=== PATIENT | male | born 1995 ===

== ENCOUNTER 2023-09-27 14:10 | Outpatient (AMB) | payer OTHER, SELFPAY ==
--- NOTE | 2023-09-27 14:28 | MHC.PC.OV ---
Vital Signs 09/27/23 14:32 Height 5 ft 7 in Weight 234 lb BMI 36.6 BP 108/64 Blood Pressure Location Rt brachial Position Sitting Pulse 106 H Pulse Source Pulse Oximeter Pulse Oximetry (%) 95 Oxygen Delivery Method Room Air Intake Visit Reasons: Numbness Tingling of left leg Intake Note: Patient here to talk about numbness and tingling in left arm, having a hard time walking, sitting bending etc. Allergies No Known Allergies Allergy (Verified 09/27/23 14:32) Medication List - Last Reconciled 09/27/23 by DANI Vick oxycodone 10 mg PO BID PRN Tobacco use date assessed: 09/27/23 Dental Screening Dental Screen Date: 09/27/23 Did you have a dental visit in the last 12 months?: Yes Did you have a dental problem in the last 6 months where you did not have access to dental care?: No Was dental information given to patient?: Patient has dentist HPI Numbness Tingling of left leg HPI Details Pt c/o lower back pain. He reports pain with bending and sitting. Pt also reports radicular symptoms down his LLE. He reports numbness/tingling and occasionally feels like he is dragging his leg. Pt has seen neurosurgery in the past, hx of microdiscectomy in 2017 and 2021 (revision). MRI from 09/25 showed postsurgical and degenerative changes of the lumbar spine, disc extrusion at L5-S1 as well as postsurgical reaction/scarring likely affecting the left S1 and S2 nerve roots, similar to previous exam (see detailed report). Will refer to our spine clinic. Will also send dexamethasone. Denies any signs of cauda equina. [facility] Surgical History (Updated 09/27/23 @ 14:44 by DANI Vick) Hx of appendectomy Hx of microdiscectomy Social History Housing: House Patient Tobacco Use Status: Former Tobacco user e-Cigarette/Vaping Use: Currently Using service: No Current occupational status: unemployed Cognitive needs: No Hearing needs: No Vision needs: No Questionnaire PHQ-9 Over the last 2 weeks, how often have you been bothered by any of the following problems? 1. Little interest or pleasure in doing things: more than half the days 2. Feeling down, depressed, or hopeless: several days 3. Trouble falling or staying asleep, or sleeping too much: more than half the days 4. Feeling tired or having little energy: nearly every day 5. Poor appetite or overeating: several days 6. Feeling bad about yourself - or that you are a failure or have let yourself or your family down: several days 7. Trouble concentrating on things, such as reading the newspaper or watching television: several days 8. Moving or speaking so slowly that other people could have noticed. Or the opposite - being so fidgety or restless that you have been moving around a lot more than usual: several days 9. Thoughts that you would be better off or of hurting yourself in some way: not at all Total score: 12 Depression Screening Interpretation: Positive Depression Screening Done: Yes 57371 - PHQ-9 Billing: Yes Source: Developed by Drs. Marcos Lynn, Vera Rao, Bill Sandoval and colleagues, with an educational svetlana from [employer]. Thrive Questionnaire Date Thrive assessed: 09/27/23 I am a: Patient What is your living situation today?: I have a steady place to live Within the past 12 months, did the food you bought not last and you didn't have the money to get more?: Never true Within the past 12 months, did you worry whether your food would run out before you got money to buy more?: Never true Do you have trouble paying for medicines?: No Do you have trouble getting transportation to medical appointments?: No Do you have trouble paying your heating and electricity bill?: No Do you have trouble taking care of your child, family member or friend?: No Do you have trouble with day-to-day activities such as bathing, preparing meals, shopping, managing finances, etc.?: Yes Are you currently unemployed and looking for a job?: Yes Are you interested in more education?: Yes BRET-7 AMB Questionnaire BRET-7 Date BRET - 7 assessed: 09/27/23 Feeling nervous, anxious, or on edge: 2 = More than half the days Not being able to stop or control worryin = More than half the days Worrying too much about different things: 2 = More than half the days Trouble relaxin = More than half the days Being so restless that it is hard to sit still: 2 = More than half the days Becoming easily annoyed or irritable: 1 = Several days Feeling afraid as if something awful might happen: 0 = Not at all Total BRET-7 score (0-4 normal; 5-9 mild; 10-14 moderate; 15-21 severe): 11 Source: Developed by Drs. Marcos Lynn, Vera Rao, Bill Sandoval and colleagues, with an educational svetlana from [employer]. BRET-7 Assessment Billing BRET-7 Assessment Tool: BRET-7 Assessment 51233 Review of Systems Const Reports as per HPI Physical exam (Primary Care) Vital Signs: Last Vital Signs Pulse 106 H 09/27/23 14:32 BP 108/64 09/27/23 14:32 Pulse Ox 95 09/27/23 14:32 Oxygen Delivery Method Room Air 09/27/23 14:32 BMI result Body Mass Index 36.6 Tobacco/Smoking Status: Tobacco use Status Tobacco use date assessed 09/27/23 09/27/23 14:36 Patient Tobacco Use Status Former Tobacco user 09/27/23 14:36 e-Cigarette/Vaping Use Currently Using 09/27/23 14:36 PHQ-9: PHQ-9 Score PHQ-9: Total score 12 09/27/23 15:03 Depression Screening Interpretation: Positive Thrive Assessment: Date of Thrive Assessment Date Thrive assessed 09/27/23 09/27/23 14:49 Const General: cooperative Nutritional Appearance: obese Orientation/consciousness: patient oriented x3 Resp Effort & Inspection: normal respiratory effort Auscultation: clear to auscultation bilaterally Cardio Rate: regular rate Rhythm: regular rhythm Heart sounds: S1 normal heart sound present and S2 normal heart sound present Back/Spine/Pelvis Other: unable to walk on heels or toes, severe weakness to LLE with significant numbness from ankle to plantar lateral foot, no sensation with use of monofilament, unable to get into supine position due to extreme pain Neuro General: patient oriented x3 Psych Appearance: grossly normal Mental Status: mental status grossly normal Speech and movement: Normal speech and movement present Affect: normal affect Attitude: cooperative Thought process: Normal thought process present Thought content: Normal thought content present Insight: Good insight present (Psych) Judgement: Good judgement present (Psych) Assessment and Plan Assessment & Plan (1) Nerve root compression: Code(s): G54.9 - Nerve root and plexus disorder, unspecified Plan: referred to spine center, dexamethasone taper sent Plan The patient agreed to the use of a curator medical museum for this encounter. Scribed for DANI Newman by Aneta Keating curator medical museum, on 09/27/2023 at 14:40 EST. Orders: Referrals Neuro Spine Referral G54.9 - Nerve root and plexus disorder, unspecified Medications: New dexamethasone 3 times a day for 3 days, twice a day for 3 days, daily for 3 days. 18 tabs 0RF 9 days Coding Level of Care Code New Pt Level 3 (89056) Diagnoses Nerve root compression G54.9 Additional Codes BRET-7 Assessment Billing - BRET-7 Assessment Tool: BRET-7 Assessment 48184 ([id number])
[2023-09-27 14:32] VITALS: BP 108/64; PULSE 106; O2SAT 95; BMI 36.6
== END 2023-09-27 15:25 | disposition home or self-care (01) ==
PROVIDERS: Visit Provider Nurse Practitioner Family
DX: G54.9 Nerve root and plexus disorder, unspecified (principal)
CPT/HCPCS: 99203

== ENCOUNTER 2023-10-19 13:08 | Outpatient (AMB) | payer OTHER, SELFPAY ==
--- NOTE | 2023-10-19 13:30 | A.SPINEOV_ITS ---
Intake Intake Visit Reasons: Nerve root and plexus disorder Intake Note: Mr. Paniagua is here today c/o low back pain. [place] [facility] [place]. 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 He is a very nice 28-year-old gentleman with a history of 2 previous L5-S1 microdiskectomies done at [facility] by , who presents to the office today for evaluation of Acute left leg pain which developed on 2022. He tells me that his 1st surgery was sometime in 2018 and he did great from that. About 2-3 years later he underwent a 2nd procedure in 2021 and he did have success from that surgery but had a lingering sense that something was wrong. Specifically he had persistent numbness in the back of his leg and he still had some of the pain down his left leg. He went through some rehab, PT, medication trials etc. and sometime around 2022 fell an abrupt onset of severe pain going down to his left leg into his foot. He also lost sensation from his calf down into the lateral aspect of his left foot and the bottom of his foot. He also developed significant ankle weakness. He went to the emergency room at [facility], underwent an MRI showing a recurrent large herniated disc on the left at L5-S1. He comes in today to see us for 2nd opinion about what to do regarding his back. He has not seen Dr. Zaldivar regarding his current situation. He has trialed steroids without success. He is tried [id number] medications like Motrin and Tylenol etc. without any success. PMH: He is reasonably healthy, no issues with his heart, lungs, kidneys. No history of bleeding disorders. Social hx: He vapes, but denies any alcohol or marijuana use Medications: Currently only taking [id number] pain medications if needed but he is trying to avoid them. Allergies: None Physical exam: Awake alert oriented, he is uncomfortable with any manipulation of his leg, straight leg raise positive at about 10-15 degrees. He has significant weakness of the left plantar flexor I would rate this as 2/5, dorsiflexion is also slightly weak at 4-5. Absent Achilles reflex on the left. Decreased sensation in the S1 dermatome. He walks with a limp and is unstable on his left leg. Imaging review: Lumbar MRI done at [facility] on 09/25/2023 showing degenerative disc at L4-5 as well as postsurgical changes at L5-S1 with a large recurrent herniated disc on the left causing significant nerve compression. The disc is herniated almost out past the facet joint. Impression: 28-year-old male history of 2 previous lumbar microdiskectomies at L5-S1, now presents with a 3rd herniation with a substantially large left-sided a rupture with weakness and numbness of his leg with severe pain that is incapacitating. I reviewed his case with Dr. Simeon, and we spent a significant amount of time reviewing the patient's films with him and going over the options. Our 1st thought was to do a microdiskectomy just to get rid of the pressure on the nerve, but the patient was concerned that this would just lead him back to the same situation he is currently at. We also discussed the option of a left L5-S1 TLIF. We had an extensive conversation about the fact that he does have a degenerative disc above where he has the herniated disc, but because of his age we are reluctant to proceed aggressively with a 2 level fusion so we will strictly keep to the level that is herniated. He understands that there is risk of adjacent segment disease down the road and he understands the reasoning behind why we are not going to fuse the L4-5 disc. The idea of an artificial disc was discussed with the patient as he was curious about whether not he is a candidate for that, but unfortunately because of the significant amount of removal of the posterior elements at L5-S1, we suspect this area to be unstable and therefore would not be a candidate for an artificial disc. However, down the road if L4-5 should become an issue, it would be an option to do an artificial disc at that level at that time. We also spent a significant amount of time discussing the fact that he has very likely underlying nerve damage related to the 3 herniated discs and that there is no way to predict if he will recover any of the strength or sensation in his leg. The goal of the surgery would be to improve his pain and his quality of life. We are going to book the surgery urgently because of the rapid decline in the strength and sensation in his leg. Pt was given risk and benefits of surgery including but not limited to infection, hematoma , nerve injury,durotomy, weakness,bowel/bladder injury, persistent pain, persistent weakness and numbness as well as the option to continue with conservative treatment and patient wishes to proceed with surgery. Pt is aware they should stop their motrin, aspirin 7 days prior to surgery. All questions were answered to the best of our ability. If there is anything about this patients medical history that we have overlooked or concerns you have about us proceeding with surgery we would appreciate any input you can offer. Thank you for allowing us to care for your patient. The total time spent with this visit with this patient was 45 minutes reviewing history, physical exam, lumbar imaging review, and implementation of treatment plan or further diagnostic testing Joe Simeon MD,PhD [facility] Coding Level of Care Code New Pt Level 4 (75085) Diagnoses Lumbar disc herniation M51.26
== END 2023-10-19 14:47 | disposition home or self-care (01) ==
PROVIDERS: PCP Nurse Practitioner Family; Referring Provider Nurse Practitioner Family; Visit Provider Physician Assistant
DX: M51.26 Other intervertebral disc displacement, lumbar region (principal)
CPT/HCPCS: 99204

== ENCOUNTER → 2023-10-19 13:08 | Outpatient (BNVA) | payer OTHER, SELFPAY | PROVIDERS: PCP Nurse Practitioner Family; Referring Provider Nurse Practitioner Family; Visit Provider Physician Assistant | DX: M51.26 Other intervertebral disc displacement, lumbar region (principal) | CPT/HCPCS: 99202 ==

== ENCOUNTER 2023-10-24 06:28 | Inpatient (IN) | payer OTHER, SELFPAY ==
[2023-10-24] VITALS (13 sets, daily range): BP systolic 103–147; BP diastolic 60–101; PULSE 86–117; RESP 11–20; TEMP 36.1–36.9; O2SAT 96–98; BMI 37.7
--- NOTE | ~2023-10-24 | FL_ITS ---
EXAMINATION: XR FLUOROSCOPY WITH IMAGES CLINICAL INFORMATION: Transforaminal lumbar interbody fusion COMPARISON: None available. TECHNIQUE: Fluoroscopy Supervised By: Jose Manzano. Fluoroscopy Time: 1.6 minutes. Cumulative Dose: 131.9 mGy. DAP: 21.03 Gycm2. Images: 2. FINDINGS: 2 views of lower lumbar spine are obtained by C-arm camera and revealed well positioned times foraminal posterior fusion with paired of screws and there is basilar between L5-S1. FL/FL guidance in OR IMPRESSION: Successful hardware placement
[2023-10-24] MEDS: methocarbamoL 750 MG TABLET PO (06:57)
[2023-10-24] MEDS: Gabapentin 300 MG CAPSULE PO (06:57)
--- NOTE | 2023-10-24 07:00 | MHC.SHP ---
Pre-Procedural Eval Section A Date of Service: 10/24/23 The patient is an INPATIENT: No Changes since office visit: No Cold of Flu in the past 2 weeks, No New Medical Problems, No Changes in Medication and No Patient answered all questions The History & Physical has been completed within 30 days and I have reviewed it.: No Section B Chief Complaint: S/p L5-S1 TLIF Allergies: Allergies Allergy/AdvReac Type Severity Reaction Status Date / Time No Known Allergies Allergy Verified 10/24/23 06:37 Review of Systems Sugical H&P ROS: Negative: Constitution, Cardiovascular, Respiratory, Neurological, Psychiatric, Hem-Onc, Allergic/Immunologic, Gastrointestinal, Genitourinary, Musculoskeletal, Integumentary, Endocrine and Eyes/Ears/Nose/Throat Exam Surgical H&P Exam: Not Evaluated: HEENT, Not Evaluated: Heart, Not Evaluated: Lungs, Not Evaluated: Extremities, Not Evaluated: Abdomen, Not Evaluated: Skin and Not Evaluated: Neurological Plan Diagnosis/Plan: Unchanged Left L5-S1 Transforaminal lumbar interbody fusion Time Spent With Patient Time: Total time managing care of this patient today __6__ minutes.
[2023-10-24] MEDS: Lactated Ringers 1,000 ML 80 ML IVCONT (07:12)
--- NOTE | 2023-10-24 07:16 | P.CONAN_ITS ---
HPI - Anesthesia Eval Consult details Narrative: 28 yo M presenting for TLIF L5-S1. [place]. PMFSH Active Problems Active Problems: All Active Problems (Updated 10/19/23 @ 14:27 by MISAEL Tao) Lumbar disc herniation (Acute) Nerve root compression (Acute) Family History Family history of problems with anesthesia: No Surgical History Surgical History (Updated 09/27/23 @ 14:44 by Aj Spence, CLIPPER MACHINE-) Hx of appendectomy Hx of microdiscectomy History of Problems with Anesthesia: No Social History Social History Housing: House Patient Tobacco Use Status: Current everyday Tobacco user Tobacco use type: Cigarette e-Cigarette/Vaping Use: Currently Using Use of substances other than those prescribed or required for medical reasons: No Are you DNR?: No Advance Directives: No Advance Directives Information Provided: No service: No Current occupational status: unemployed Cognitive needs: No Hearing needs: No Vision needs: No Meds Allergies Allergy/AdvReac Type Severity Reaction Status Date / Time No Known Allergies Allergy Verified 10/24/23 06:37 Active Medications: Current Medications Lactated Ringer's (Lr) 1,000 mls @ 80 mls/hr IVCONT .[id number] LISANDRO Last Admin: 10/24/23 07:12 Dose: 80 mls/hr Home Medications Medication Instructions Recorded Confirmed Last Taken Type oxycodone 10 mg tablet 10 mg PO BID PRN 09/27/23 09/27/23 Unknown History Exam Exam Date and Time: October 24, 2023 0715 Height,Weight and Vital Signs: Height 5 ft 7 in Weight 109.089 kg Last Vital Signs Temp 97.0 F 10/24/23 07:09 Pulse 96 10/24/23 07:09 Resp 16 10/24/23 07:09 BP 124/78 10/24/23 07:09 Pulse Ox 98 10/24/23 07:09 O2 Del Method Room Air 10/24/23 07:09 Airway Mallampati Class: I TM Dist: >3cm Neck ROM: Full Loose/Missing/Broken Teeth: No Heart: S1S2 Lungs: CTAB Assessment and Plan Assessment Anesthesia Assessment: Anesthesia Plan Discussed and Chart Reviewed Final Anesthetic Review Family History of Problems with Anesthesia: No History of Problems with Anesthesia: No NPO: Yes ASA Class: II Final Preanesthetic Review: No Changes in Pt Med Stat, Meds/Allgs Chart Reviewed, Consent Obtained/Reviewed and Anes Risks/Benef Reviewed Patient Risk: Low Procedure Risk: Intermediate Anesthetic Plan Anesthetic Plan: GA and Agree w/ Assess. and Plan Disposition: Standard PACU
--- NOTE | 2023-10-24 11:34 | P.OP_ITS ---
Operative Note Operative Note Date of Service: 10/24/23 Narrative: Preop diagnosis: Left lumbar radiculopathy with foot weakness due to a large recurrent disc herniation L5-S1; status post 2 previous lumbar microdiskectomies in another institution Postop diagnosis: Left lumbar radiculopathy due to calcified disc herniation Procedure: Left L5-S1 Complete facetectomy; Diskectomy, arthrodesis and implantation cage; L5-S1 posterior instrumentation; combination of allograft and allograft Consent Informed Consent was obtained for this operation. I have explained the nature, purpose and benefits of the operation. I have discussed the risks and benefit of the operation including possible complications or adverse events with patient/family. Alternative(s) were discussed with the patient with their relative benefits and risks as well as the consequences of not accepting the operation were included in obtaining consent. Surgeon: Shukri Simeon MD, PhD Assist: Joe pedro Description of Procedure: This 28-year-old male previously underwent 2 microdiskectomies L5-S1 another institution. He presented to our clinic with left leg pain and foot weakness. A recurrent MRI shows a large disc extrusion compressing the S1 nerve root. The patient was offered a remove the disc herniation followed by a fusion of the L5- S1 segment with a transforaminal lumbar interbody fusion. Procedure complication explained. The patient was consented. The patient was brought to the operating room endotracheally intubated. The patient was turned in a prone position the Ministerio spine table prepping and draping was done followed by time- out. Two C arms were installed for fluoroscopy. Two paramedian incisions were made in preparation for pedicle screw placement. Following steps were taken for pedicle screw placement: First the pediguard tap was used to create a trans pedicular trajectory into the vertebral body. Then a K-wire was advanced into the vertebral body. On the contralateral side, a specially designed instrument was advanced over the K-wire, followed by placement of a pedicle screw in the corresponding pedicle and removal of the K-wire. On the ipsilateral side, the K-wires were bent out of the way after which the transforaminal interbody fusion process was started. The paravertebral muscles were released to expose the L5- S1 lamina and facet joint. Fibrous tissue was resected to expose the previous operated anatomy. The facet joint was mostly resected in the previous surgery. I removed the remainder of the facet joint flush to the L5 pedicle and S1 pedicle. The disc space was identified and a large mass was palpated displacing S1 nerve posteriorly. This was the disc but the consistency of disc was unfortunately calcified, which made the resection very difficult. I cleaned out the L5-S1 disc as much as possible laterally and tried with a curved pituitary to retrieve as much bone as possible from under the S1 nerve root. I tried to maneuver the S1 nerve root over the underlying calcified disc and although I was able to remove most of it a medial part persisted which was not coming loose on the S1 nerve. Then I focused on placing in the interbody device. The nerve root was retracted medially the remainder of the diskectomy was completed. An 10 mm trial implant was inserted. More disc material was removed. The endplates were prepared. The anterior 1/3 of disc space was filled with a mixture of autograft and allograft followed by placement of a 11 mm by 32 mm and 6 degree lordosis CTL titanium cage filled with autograft and allograft ending lateral from the midline on AP fluoroscopic image. I was unable to position it in true midline as I hit bone in the center of the disc space. I believe that the L5-S1 disc space was already partially fused. Hemostasis was done. The retractor was removed. Finally, pedicle screws were placed over the K-wires and the K-wires were removed. A total 4 pedicle screws were placed with a diameter of 6.5 x 45 mm in the L5 pedicles and 6.5 x 40 mm in the S1 pedicles. The p edicle screws were connected with a 40 mm johan on the right and a 45 mm johan and left and locked down with locking caps. Final x-rays in AP and lateral projection showed good position of the interbody device and posterior instrumentation. Hemostasis was done and the incisions were closed with an 0 Vicryl to fascia and a 3-0 Vicryl for the subdermal layer. All sponge and needle counts were correct. Patient was extubated and transported in a stable condition to recovery room. This procedure was done with assistance of her physician teaching assistant who helped an director patient accounting in the fluoroscopic imaging, placed pedicle screws and performed hemostasis and closure of the incisions. Anesthesia: General Estimated blood loss: 50 mL Complications: None. Deposition: Admit to inpatient for observation.
[2023-10-24] MEDS: HYDROmorphone HCl 0.5 MG/0.5 ML SYRINGE IVPUSH (12:52)
--- NOTE | 2023-10-24 14:02 | PHA.MEDREC ---
Pharmacy Consult ? Medication Reconciliation Pharmacy has completed the medication reconciliation. Spoke with patient in 378. Patient is not on any medication ( RX or OTC)
[2023-10-24] MEDS: 0.9 % Sodium Chloride 1,000 ML 75 ML IVCONT (14:26)
[2023-10-24] MEDS: ceFAZolin Sodium/Dextrose,Iso 2 GM/50 ML PIGGYBACK IV ×2 (14:26→19:31)
[2023-10-24] MEDS: oxyCODONE HCl Immed Release 5 MG TABLET 10 MG PO ×2 (14:49→18:38)
[2023-10-24] MEDS: Nicotine 21 MG PATCH.TD24 TRANSDERMA (18:38)
[2023-10-24] MEDS: Docusate Sodium 100 MG CAPSULE PO (19:31)
[2023-10-24] MEDS: HYDROmorphone HCl 1 MG/ML SYRINGE IVPUSH (22:30)
[2023-10-25] VITALS: BP 111/66; PULSE 119; RESP 16; TEMP 36.9; O2SAT 97
[2023-10-25] MEDS: HYDROmorphone HCl 1 MG/ML SYRINGE IVPUSH ×3 (02:14→09:40)
[2023-10-25] MEDS: ceFAZolin Sodium/Dextrose,Iso 2 GM/50 ML PIGGYBACK IV (02:22)
[2023-10-25 04:00] VITALS: BP 113/60; PULSE 110; RESP 16; TEMP 36.8; O2SAT 94
[2023-10-25] MEDS: 0.9 % Sodium Chloride 1,000 ML 75 ML IVCONT (04:43)
[2023-10-25 07:03] VITALS: BP 125/72; PULSE 111; RESP 16; TEMP 36.6; O2SAT 96
[2023-10-25 08:34] VITALS: BP 125/72; PULSE 111; O2SAT 96
--- NOTE | 2023-10-25 09:12 | HO.POSTANES ---
Post Anesthesia Evaluation Post Anesthesia Evaluation Date of Service: 10/25/23 Vital Signs: Vital Signs Temp Pulse Resp BP Pulse Ox O2 Del Method O2 Flow Rate 10/25/23 08:34 111 H 125/72 96 10/25/23 07:03 98 F 111 H 16 125/72 96 Room Air 10/25/23 04:00 98.3 F 110 H 16 113/60 94 Room Air 10/25/23 00:00 98.4 F 119 H 16 111/66 97 Nasal Cannula 3 Anesthesia: General Endotracheal-GETA Mental Status: Awake Pain Control: Satisfactory (4/10) Nausea/Vomiting: None Hydration: Adequate Anesthesia-Related Issues: No Anes. Related Issues
[2023-10-25] MEDS: Docusate Sodium 100 MG CAPSULE PO (09:40)
--- NOTE | 2023-10-25 09:59 | HO.NEURO.PN ---
Neurosurgery Operative Note Date of Service: 10/25/23 Narrative: Postop day 1. Left L5-S1 transforaminal lumbar interbody fusion Patient reports the pain in his leg is significantly better, the weakness also has improved. He is feeling tingling of his whole foot but the numbness seems to be improved as well. He is voiding okay. He has tolerating a diet. He has back pain as expected. Afebrile, vital signs stable Physical exam: Patient is awake alert oriented no acute distress he still has residual weakness of the left plantar flexion which I would rate as 4/5. This is improved compared to what he had preoperatively. There is still some mild weakness of the dorsiflexion as well which I would rate as 4/5. There is diminished sensation on the top and the bottom of the foot. His back dressings are clean and dry with a small amount of staining. Impression: Postop day 1. Left L5-S1 transforaminal lumbar interbody fusion, patient clinically improved from the standpoint of his pain and weakness. He reports tingling of his whole foot which may just be nerve irritation given that this is his 3rd surgery in this area. He has ambulated with PT and cleared to go home with a wheeled walker. I left a script in his chart. He will return in the office and see us. Patient was given discharge instructions and activity guidelines. I will update Dr. Simeon and the patient's status.
--- NOTE | 2023-10-25 10:01 | PM.DS ---
DS: Providers Provider Date of Service: 10/24/23 Date of admission: 10/24/23 06:28 Date of discharge: 10/25/23 Primary care physician: DANI Donato Admitting clinician: Shukri Simeon DS: Diagnosis Discharge Diagnosis (1) Lumbar disc herniation: Status: Acute (2) Nerve root compression: Status: Acute DS: Summary Time Attestation Discharge coordination time: Less than 30 minutes Quality: Safe Use of Opioids Does Pt have an Active Cancer Diagnosis on the Problem List?: No Quality: Stroke Does the patient have a stroke diagnosis?: No Physical Exam Vital Signs: Vital Signs: Last Vital Signs Temp 98 F 10/25/23 07:03 Pulse 111 H 10/25/23 08:34 Resp 16 10/25/23 07:03 BP 125/72 10/25/23 08:34 Pulse Ox 96 10/25/23 08:34 O2 Del Method Room Air 10/25/23 07:03 O2 Flow Rate 3 10/25/23 00:00 BMI result Body Mass Index 37.7 Discharge Plan Discharge Anticipated Discharge Date/Time: 10/25/23 13:02 Patient Disposition: Home, Self-Care Discharge Diagnosis: Lumbar disc herniation L5-S1, status post left L5-S1 transforaminal lumbar interbody fusion Referrals: Aj Spence FNP-BC [Primary Care Provider] - 1 Week Discharge Medications: New docusate sodium [Colace] 100 mg capsule 100 mg PO BID Qty: 20 0RF hydromorphone [Dilaudid] 2 mg tablet See Rx Instructions .ROUTE .COMPLEX PRN (Reason: pain) Qty: 40 0RF Rx Instructions: 1-2 tabs po q4 hours prn pain; Partial Fill upon patient request. Discharge Orders: Discharge Order (Routine); Ordered 10/25/23 Ordered By: Joe Olsen Diet: Advance to usual diet Activity on Discharge: As tolerated Stand Alone Forms: Patient Portal Discharge page Activity Restrictions/Additional Instructions: After your spinal surgery we ask you to observe the following restrictions/guidelines: Activity: It is normal to feel some discomfort as you increase your activity, but that will improve with time. We ask you avoid heavy lifting or acitivities that cause pain. As a general rule, 8lbs is a safe limit for lifting right after surgery. Walk as much as you feel comfortable but not to exhaustion. You will feel extra tired the first few days after surgery. Stay well hydrated. It is OK to walk up and down stairs You may return to driving when you are off narcotics (such as vicodin, oxycodone, dilaudid, etc), and you are back to normal functional capacity. If you have any concerns please check with office before driving. Return to work is specific to each patient and each surgery, so please speak with your doctor/PA at first follow up. Please bring paperwork such as FMLA at that time if you need it filled out. Medications: For optimum pain control, it is best to start with a combination of 500 mg of Tylenol every 4 hours with 600 mg of Motrin every 8 hours, and use narcotics as needed in between for breakthrough pain. We will give you a short supply of narcotics after surgery (usually one weeks worth). If you need more please call the office but do not use more than prescribed. You will need to give our office 48 hours notice if you need narcotics refilled and we do not fill narcotics on weekends or evenings. If you are on a narcotic, it is a good idea to take a stool softener such as colace or senna to avoid constipation If you take blood thinner such as aspirin, Plavix, Coumadin, Effient, Eliquis etc for conditions such as Afib, DVT, Pulmonary embolus, coronary disease, stents etc please speak with your surgeon about specific details as to when you can resume these medications. You can resume NSAIDs on post op day 1 (eg: Motrin, Naproxen, etc). Follow up: Please call the office, , after surgery to arrange a 3 week follow up for wound check. Wound Care: You may remove your dressing on the first day after surgery. ?You may ?leave open to air. Please do not remove the steri strips underneath. they will fall off on their own in one week. IT IS NORMAL FOR THE WOUND TO OOZE OR BE BLOODY FOR A FEW DAYS AFTER SURGERY. ?IF THIS HAPPENS JUST PLACE NEW DRESSING OVER IT TO AVOID STAINING CLOTHES. You may shower on post op day # 1 We ask that you do not let the water soak the wound. If it does get wet, just towel dry lightly. Please do not scrub your incision or place any type of chemical/ointment on the wound. No tub baths, pools or jacuzzis for one month. If you have any leaking or redness from your wound, or fevers, please call office Care Plan Goals: discharge home Health Concerns: none Plan of Treatment: discharge home Assessment: stable
--- NOTE | 2023-10-25 10:21 | P.DS_ITS ---
DS: Providers Provider Date of Service: 10/25/23 Date of admission: 10/24/23 06:28 Primary care physician: DANI Donato DS: Diagnosis Discharge Diagnosis (1) Lumbar disc herniation: Status: Acute (2) Nerve root compression: Status: Acute DS: Summary Time Attestation Discharge coordination time: Less than 30 minutes Quality: Safe Use of Opioids Does Pt have an Active Cancer Diagnosis on the Problem List?: No Quality: Stroke Does the patient have a stroke diagnosis?: No Physical Exam Vital Signs: Vital Signs: Last Vital Signs Temp 98 F 10/25/23 07:03 Pulse 111 H 10/25/23 08:34 Resp 16 10/25/23 07:03 BP 125/72 10/25/23 08:34 Pulse Ox 96 10/25/23 08:34 O2 Del Method Room Air 10/25/23 07:03 O2 Flow Rate 3 10/25/23 00:00 BMI result Body Mass Index 37.7 Discharge Plan Discharge Anticipated Discharge Date/Time: 10/25/23 13:02 Patient Disposition: Home, Self-Care Discharge Diagnosis: Lumbar disc herniation L5-S1, status post left L5-S1 transforaminal lumbar interbody fusion Referrals: Aj Spence FNP-BC [Primary Care Provider] - 1 Week Discharge Medications: New docusate sodium [Colace] 100 mg capsule 100 mg PO BID Qty: 20 0RF hydromorphone [Dilaudid] 2 mg tablet See Rx Instructions .ROUTE .COMPLEX PRN (Reason: pain) Qty: 40 0RF Rx Instructions: 1-2 tablets PO every 4 hours as needed for pain Partial Fill upon patient request. Discharge Orders: Discharge Order (Routine); Ordered 10/25/23 Ordered By: Joe Olsen Diet: Advance to usual diet Activity on Discharge: As tolerated Stand Alone Forms: Patient Portal Discharge page Activity Restrictions/Additional Instructions: After your spinal surgery we ask you to observe the following restrictions/guidelines: Activity: It is normal to feel some discomfort as you increase your activity, but that will improve with time. We ask you avoid heavy lifting or acitivities that cause pain. As a general rule, 8lbs is a safe limit for lifting right after surgery. Walk as much as you feel comfortable but not to exhaustion. You will feel extra tired the first few days after surgery. Stay well hydrated. It is OK to walk up and down stairs You may return to driving when you are off narcotics (such as vicodin, oxycodone, dilaudid, etc), and you are back to normal functional capacity. If you have any concerns please check with office before driving. Return to work is specific to each patient and each surgery, so please speak with your doctor/PA at first follow up. Please bring paperwork such as FMLA at that time if you need it filled out. Medications: For optimum pain control, it is best to start with a combination of 500 mg of Tylenol every 4 hours with 600 mg of Motrin every 8 hours, and use narcotics as needed in between for breakthrough pain. We will give you a short supply of narcotics after surgery (usually one weeks worth). If you need more please call the office but do not use more than prescribed. You will need to give our office 48 hours notice if you need narcotics refilled and we do not fill narcotics on weekends or evenings. If you are on a narcotic, it is a good idea to take a stool softener such as colace or senna to avoid constipation If you take blood thinner such as aspirin, Plavix, Coumadin, Effient, Eliquis etc for conditions such as Afib, DVT, Pulmonary embolus, coronary disease, stents etc please speak with your surgeon about specific details as to when you can resume these medications. You can resume NSAIDs on post op day 1 (eg: Motrin, Naproxen, etc). Follow up: Please call the office, , after surgery to arrange a 3 week follow up for wound check. Wound Care: You may remove your dressing on the first day after surgery. ?You may ?leave open to air. Please do not remove the steri strips underneath. they will fall off on their own in one week. IT IS NORMAL FOR THE WOUND TO OOZE OR BE BLOODY FOR A FEW DAYS AFTER SURGERY. ?IF THIS HAPPENS JUST PLACE NEW DRESSING OVER IT TO AVOID STAINING CLOTHES. You may shower on post op day # 1 We ask that you do not let the water soak the wound. If it does get wet, just towel dry lightly. Please do not scrub your incision or place any type of chemical/ointment on the wound. No tub baths, pools or jacuzzis for one month. If you have any leaking or redness from your wound, or fevers, please call offic e Care Plan Goals: discharge home Health Concerns: none Plan of Treatment: discharge home Assessment: stable
--- NOTE | 2023-10-25 11:13 | MHC.CM.PN ---
Male S/P L5-S1 He lives with and kids. He uses a cane to ambulate safely. He declined the offer to document a HCP. DP home self care. Patients will provide transportation home.
== END 2023-10-25 11:30 | disposition home or self-care (01) | DRG 304 ==
LOC: HO.SSSA 06:31 → HO.S3 12:42
PROVIDERS: Admitting Provider Neurological Surgery; PCP Nurse Practitioner Family; Visit Provider Neurological Surgery
PROC: 0SG30A0 Fusion of Lumbosacral Joint with Interbody Fusion Device, Anterior Approach, Anterior Column, Open Approach (ICD-10-PCS; principal; 2023-10-24 07:30)
DX: M51.26 Other intervertebral disc displacement, lumbar region (principal); F17.210 Nicotine dependence, cigarettes, uncomplicated; Z71.6 Tobacco abuse counseling
CPT/HCPCS: 97116; 97162; 99024; C1713; J0131; J0690; J1100; J1170; J1885; J2250; J2371; J2405; J2704; J3010; L8699

== ENCOUNTER → 2023-10-24 06:28 | Outpatient (BNV) | payer OTHER, SELFPAY | PROVIDERS: Admitting Provider Neurological Surgery; PCP Nurse Practitioner Family; Visit Provider Neurological Surgery | DX: M51.26 Other intervertebral disc displacement, lumbar region (principal); G54.9 Nerve root and plexus disorder, unspecified | CPT/HCPCS: 20930; 20936; 22633; 22840; 22853; 63052; 99499 ==

== ENCOUNTER 2023-11-17 11:40 | Outpatient (AMB) | payer OTHER, SELFPAY ==
--- NOTE | 2023-11-17 11:42 | MHC.OFFVIS ---
Intake Intake Visit Reasons: 1st post op [employer] Worker Required: No Allergies No Known Allergies Allergy (Verified 10/24/23 06:37) PENDING SALE TO [facility] Surgical History (Updated 11/17/23 @ 11:54 by MISAEL Parsons) Hx of appendectomy Hx of microdiscectomy Social History Household Members: Family Housing: House Do you presently have visiting nurse or other home services: No Patient Tobacco Use Status: Current everyday Tobacco user Tobacco use type: Cigarette e-Cigarette/Vaping Use: Currently Using service: No Current occupational status: unemployed Cognitive needs: No Hearing needs: No Vision needs: No Assessment & Plan Assessment & Plan (1) S/P lumbar microdiscectomy: Code(s): Z98.890 - Other specified postprocedural states Plan Procedure: Left L5-S1 TLIF Jignesh comes in today for his 1st postoperative visit. He reports that the shooting pain down his left leg has resolved. Unfortunately he continues to have burning across the top of his left foot, and some intermittent tingling on the bottom of his left foot. He states that the burning across the top of his left foot keeps him up at night and causes him a significant amount of distress. That being said, he feels very relieved that the shooting pain down his leg has resolved. He is ambulating around his house and completing the majority of his ADLs. He does report that he continues to take 1 of his pain medications in the late afternoon and another before bed due to the burning pain over his left foot. No new neurological deficits. Sensation grossly intact. Patient is able to ambulate well, rises from a seated position without difficulty. Posterior incision sites are closed, well healing, with no signs of drainage. I will prescribe Jignesh a course of gabapentin to see if this addresses his dorsal surface foot burning/pain. He states that he took gabapentin before at both 100mg and 300mg doses without any significant relief. He inquired about a stronger dose, so I will start him at 600 mg twice daily. Ideally this will be able to replace his narcotic pain medication for postoperative nerve pain. We will follow-up with the patient in 6 weeks for his 2nd postoperative visit. At that time we will get x-rays to review with the patient. Willi Simeon MD,PhD [facility] Medications: New gabapentin 600 mg PO BID PRN 30 tabs 0RF persistent nerve pain Coding Level of Care Code Global (46878) Diagnoses S/P lumbar microdiscectomy Z98.890
== END 2023-11-17 11:57 | disposition home or self-care (01) ==
PROVIDERS: PCP Nurse Practitioner Family; Visit Provider Physician Assistant
DX: Z98.890 Other specified postprocedural states (principal)
CPT/HCPCS: 99024

== ENCOUNTER → 2023-11-17 11:40 | Outpatient (BNVA) | payer OTHER, SELFPAY | PROVIDERS: PCP Nurse Practitioner Family; Visit Provider Physician Assistant | DX: Z47.89 Encounter for other orthopedic aftercare (principal); M43.27 Fusion of spine, lumbosacral region | CPT/HCPCS: 99212 ==

== ENCOUNTER 2024-02-06 11:11 | Outpatient (REF) | payer OTHER, SELFPAY ==
[2024-02-06 13:17] LABS: MANUAL DIFF FLAG NO
[2024-02-06 13:37] LABS: Basophils Absolute Auto 0.1 X10*3/uL (0.0-0.2); Basophils Percent Auto 0.9 % (0-2); Eosinophils Absolute Auto 0.1 X10*3/uL (0.0-0.4); Eosinophils Percent Auto 1.7 % (0-4); Hemoglobin 14.2 g/dl (14.0-18.0); Imm Gran Abs Auto 0.01 X10*3/uL (0.00-0.03); Imm Gran Pct Auto 0.2 % (0.0-0.4); Lymphocytes Absolute Auto 1.7 X10*3/uL (1.2-4.9); Lymphocytes Percent Auto 29.8 % (20-40); Mean Corpuscular HGB Conc 32.3 g/dl (31.0-36.0); Mean Corpuscular Hemoglobin 28.4 pg (27.0-33.0); Mean Platelet Volume 10.4 fL (9.4-12.4); Monocytes Absolute Auto 0.6 X10*3/uL (0.1-1.2); Monocytes Percent Auto 9.5 % (2-11); Neutrophils Absolute Auto 3.4 x10*3/uL (2.0-8.3); Neutrophils Percent Auto 57.9 % (45-73); Platelet Count 270 X10*3/uL (160-400); Red Cell Distribution Width 12.4 % (11.0-16.0); White Blood Count 5.8 X10*3/uL (4.8-10.8)
[2024-02-06 13:55] LABS: Appearance Urine Clear; Color Urine Yellow; Glucose Urine UA Negative (Negative); Leukocyte Esterase Urine Negative (Negative); Nitrite Urine Negative (Negative); Specific Gravity - Urine 1.025 (1.005-1.025); Urine Blood Negative (Negative); Urine Ketones Trace mg/dL (Negative); Urine Protein Negative (Neg-Trace)
[2024-02-06 14:03] LABS: Alanine Aminotransferase 30 U/L (0-40); Albumin Level 4.2 g/dL (3.5-5.0); Alkaline Phosphatase 61 U/L (39-117); Anion Gap 13 (12-20); Aspartate Amino Transferase 19 U/L (5-37); Bilirubin Total 0.3 mg/dL (0.0-1.0); Blood Urea Nitrogen 11 mg/dL (9-16); Calcium 9.5 mg/dL (8.4-10.2); Carbon Dioxide 24 mmol/L (22-29); Chloride 108 mmol/L (96-108); Cholesterol 165 mg/dL (<200); Estimated Glomerular Filt Rate > 60; Glucose Fasting 97 mg/dL (60-99); HDL Cholesterol 53 mg/dL (>40); LDL Cholesterol Calculated 98 mg/dL (<100); Potassium 3.8 mmol/L (3.3-5.1); Sodium 141 mmol/L (135-145); Total Protein 7.7 g/dL (6.5-8.0); Triglycerides 70 mg/dL (<150)
[2024-02-06 14:10] LABS: TSH reflex Free T4 0.95 uIU/mL (0.32-4.0); Vitamin D 25-OH Total 19.5 ng/mL (>30)
== END 2024-02-06 11:12 | disposition home or self-care (01) ==
LOC: HO.HMGCLDS 11:11
PROVIDERS: PCP Nurse Practitioner Family; Visit Provider Nurse Practitioner Family
DX: Z00.00 Encounter for general adult medical examination without abnormal findings (principal)
CPT/HCPCS: 36415; 80053; 80061; 81003; 82306; 84443; 85025

== ENCOUNTER 2024-02-07 11:31 | Outpatient (AMB) | payer OTHER, SELFPAY ==
--- NOTE | 2024-02-07 11:32 | MHC.PC.OV ---
Vital Signs 02/07/24 11:35 Height 5 ft 7 in Weight 237 lb BMI 37.1 BP 120/78 Blood Pressure Location Rt brachial Position Sitting Pulse 97 Pulse Source Pulse Oximeter Pulse Oximetry (%) 98 Oxygen Delivery Method Room Air Intake Visit Reasons: PE Intake Note: Patient here for physical exam. Pt would like to talk about possible weight med, lack of energy/motivation, ADHD as well as quit smoking Labs were done. Allergies No Known Allergies Allergy (Verified 02/07/24 11:39) Tobacco use date assessed: 02/07/24 Dental Screening Dental Screen Date: 02/07/24 Did you have a dental visit in the last 12 months?: No Did you have a dental problem in the last 6 months where you did not have access to dental care?: No Was dental information given to patient?: Patient has dentist HPI PE HPI Details Pt is here for a PE. Labs were already performed. Pt had a recent Left L5-S1 complete facetectomy; Diskectomy, arthrodesis and implantation cage; L5-S1 posterior instrumentation; combination of allograft and allograft on 10/24. Pt reports some ongoing lower transverse back pain when lying in the supine position. He also reports some radiculopathy to the dorsal aspect of his left foot. Pt reports walking with a slight limp. Encouraged pt to develop a stretching routine at home. Pt is interested in massage therapy, will refer. Pt reports being diagnosed with ADHD previously. He would like to try a medication for this. Pt would also like to quit smoking. Will start wellbutrin XL 150mg. PFSH Medical History (Updated 02/07/24 @ 12:10 by [facility] ADHD Surgical History (Updated 11/17/23 @ 11:54 by MISAEL Parsons) Hx of appendectomy Hx of microdiscectomy Social History Household Members: Family Housing: House Do you presently have visiting nurse or other home services: No Patient Tobacco Use Status: Former Tobacco user Tobacco use type: Cigarette e-Cigarette/Vaping Use: Currently Using service: No Current occupational status: unemployed Cognitive needs: No Hearing needs: No Vision needs: No Questionnaire PHQ-9 Over the last 2 weeks, how often have you been bothered by any of the following problems? 22760 - PHQ-9 Billing: Patient declined-do not bill Source: Developed by Vera NavarroW. Jalen, Bill Sandoval and colleagues, with an educational svetlana from [employer]. Thrive Questionnaire Date Thrive assessed: 02/07/24 I am a: Patient What is your living situation today?: I have a steady place to live Within the past 12 months, did the food you bought not last and you didn't have the money to get more?: Never true Within the past 12 months, did you worry whether your food would run out before you got money to buy more?: Never true Do you have trouble paying for medicines?: No Do you have trouble getting transportation to medical appointments?: No Do you have trouble paying your heating and electricity bill?: No Do you have trouble taking care of your child, family member or friend?: No Do you have trouble with day-to-day activities such as bathing, preparing meals, shopping, managing finances, etc.?: No Are you currently unemployed and looking for a job?: No Are you interested in more education?: No Currently or been in a relationship where the following occur: I choose not to answer this question THRIVE Score: 0 AUDIT C Alcohol Use Questionnaire (AUDIT-C) 1. How often do you have a drink containing alcohol?: Never 3. How often do you have six or more drinks on one occasion?: Never Total Score: 0 Score Reviewed/Action Taken: No BRET-7 AMB Questionnaire BRET-7 Date BRET - 7 assessed: 02/07/24 Source: Developed by Drs. Marcos Lynn, Vera Rao, Bill Sandoval and colleagues, with an educational svetlana from [employer]. BRET-7 Assessment Billing BRET-7 Assessment Tool: pt declined-do not bill Review of Systems Const Denies chills and Denies fever(s) Eyes Denies blurry vision ENT Denies vertigo, Denies dizziness and Denies sore throat Card Denies chest pain at rest, Denies chest pain with activity, Denies diaphoresis, Denies dyspnea and Denies dyspnea on exertion Resp Denies cough, Denies dyspnea, Denies dyspnea on exertion and Denies wheezing GI Denies abdominal pain, Denies melena, Denies hematochezia, Denies constipation, Denies diarrhea and Denies loose stools Denies hematuria Musc Denies numbness and Denies tingling Skin/Breast Denies lesions Neuro Denies vertigo, Denies dizziness, Denies numbness and Denies tingling Psych Denies anxiety, Denies depression, Denies homicidal ideation, Denies suicidal ideation and Denies other (substance abuse) Aller/Immun Denies wheezing Physical exam (Primary Care) Vital Signs: Last Vital Signs Pulse 97 02/07/24 11:35 BP 120/78 02/07/24 11:35 Pulse Ox 98 02/07/24 11:35 Oxygen Delivery Method Room Air 02/07/24 11:35 BMI result Body Mass Index 37.1 Tobacco/Smoking Status: Tobacco use Status Tobacco use date assessed 02/07/24 02/07/24 11:42 Patient Tobacco Use Status Former Tobacco user 02/07/24 11:42 Tobacco use type Cigarette 02/07/24 11:32 e-Cigarette/Vaping Use Currently Using 02/07/24 11:32 Thrive Assessment: Date of Thrive Assessment Date Thrive assessed 10/25/23 02/07/24 11:32 Currently or been in a relationship where the following occur: I choose not to answer this question Const General: cooperative Nutritional Appearance: obese Orientation/consciousness: patient oriented x3 HENMT Head: Yes normal to inspection, Yes normocephalic and Yes atraumatic Ears: TM's normal bilaterally Eyes General: appearance normal, both eyes and all related structures Alignment and Position: alignment normal and position normal Neck Neck: Yes normal visual inspection and Yes no lymphadenopathy Thyroid: Thyroid normal Resp Effort & Inspection: normal respiratory effort Auscultation: clear to auscultation bilaterally Cardio Rate: regular rate Rhythm: regular rhythm Heart sounds: S1 normal heart sound present, S2 normal heart sound present and no murmurs GI Palpation (GI): Soft to palpation and nontender Auscultation: normal bowel sounds Male General Exam: Yes normal external exam Penis: normal penis Scrotum: scrotum normal, testes descended bilaterally and no inguinal hernias Testes: no testicular mass Back/Spine/Pelvis Other: no pain with palpation of lower transverse back Skin Rashes: no rashes Neuro General: patient oriented x3, moves all extremities, no focal motor deficits and deep tendon reflexes 2+ bilaterally Romberg Test: Negative Psych Appearance: grossly normal Mental Status: mental status grossly normal Speech and movement: Normal speech and movement present Affect: normal affect Attitude: cooperative Thought process: Normal thought process present Thought content: Normal thought content present Insight: Good insight present (Psych) Judgement: Good judgement present (Psych) Assessment and Plan Assessment & Plan (1) Lumbar disc herniation: Code(s): M51.26 - Other intervertebral disc displacement, lumbar region (2) S/P lumbar microdiscectomy: Code(s): Z98.890 - Other specified postprocedural states Plan: highly recommended a daily stretching routine, with use of heat prior to stretching. I also recommended weight loss. Pt reported understanding (3) ADHD: Code(s): F90.9 - Attention-deficit hyperactivity disorder, unspecified type Plan: wellbutrin prescribed (4) Vapes nicotine containing substance: Code(s): Z72.0 - Tobacco use Plan: urged to quit and use of wellbutrin may help. (5) Encounter for routine adult physical exam with abnormal findings: Code(s): Z00.01 - Encounter for general adult medical examination with abnormal findings Plan The patient agreed to the use of a medical secretary teacher for this encounter. Scribed for PETRA Newman-BC by Aneta Keating medical secretary teacher, on 02/07/2024 at 11:45 EST. Orders: Orders Vitamin D 25-OH Total 02/06/24 Z00.00 - Encounter for general adult medical examination without abnormal findings UA CC w/rflx Micro + Cult 02/06/24 Z. - Encounter for general adult medical examination without abnormal findings TSH reflex Free T4 02/06/24 Z00.00 - Encounter for general adult medical examination without abnormal findings Comprehensive [place]. Panel Fast 02/06/24 Z00.00 - Encounter for general adult medical examination without abnormal findings Complete Blood Count Auto Diff 02/06/24 Z00.00 - Encounter for general adult medical examination without abnormal findings Lipid Panel 02/06/24 Z00.00 - Encounter for general adult medical examination without abnormal findings Referrals Massage Therapy Referral M51.26 - Other intervertebral disc displacement, lumbar region, Z98.890 - Other specified postprocedural states Medications: New bupropion HCl XL (Wellbutrin XL) 150 mg PO QAM 90 tabs 0RF Coding Level of Care Code Est Pt Prev Care 18-39y(17010) Diagnoses Lumbar disc herniation M51.26 S/P lumbar microdiscectomy Z98.890 ADHD F90.9 Vapes nicotine containing substance Z72.0 Encounter for routine adult physical exam with abnormal findings Z00.01
[2024-02-07 11:35] VITALS: BP 120/78; PULSE 97; O2SAT 98; BMI 37.1
== END 2024-02-07 13:21 | disposition home or self-care (01) ==
PROVIDERS: PCP Nurse Practitioner Family; Visit Provider Nurse Practitioner Family
DX: Z00.01 Encounter for general adult medical examination with abnormal findings (principal); M51.26 Other intervertebral disc displacement, lumbar region; Z98.890 Other specified postprocedural states; F90.9 Attention-deficit hyperactivity disorder, unspecified type; Z72.0 Tobacco use
CPT/HCPCS: 99213; 99395

== ENCOUNTER 2024-08-02 08:33 | Outpatient (AMB) | payer OTHER, SELFPAY ==
[2024-08-02 08:35] VITALS: BP 106/78; PULSE 87; O2SAT 97; BMI 36.8
--- NOTE | 2024-08-02 08:35 | MHC.PC.OV ---
Vital Signs 08/02/24 08:35 Height 5 ft 7 in Weight 235 lb BMI 36.8 BP 106/78 Blood Pressure Location Lt brachial Position Sitting Pulse 87 Pulse Source Pulse Oximeter Pulse Oximetry (%) 97 Oxygen Delivery Method Room Air Intake Visit Reasons: referral Intake Note: Pt is here today for a follow up visit. Pt states that he needs a referral to GI. Allergies No Known Allergies Allergy (Verified 08/02/24 08:39) Tobacco use date assessed: 08/02/24 Dental Screening Dental Screen Date: 08/02/24 Did you have a dental visit in the last 12 months?: Yes Did you have a dental problem in the last 6 months where you did not have access to dental care?: No Was dental information given to patient?: Patient has dentist HPI HPI Comments History of Present Illness Details 29 y/o male patient who presents to the clinic with c/o Rectal bleeding for 2 months. Reports noticing blood in his feces and when he wipes. Reports occasional constipation. There is a strong Familiar h/o Colon CA. Pt worried about this. PFSH Medical History (Updated 02/07/24 @ 12:[address] [facility]) ADHD Surgical History (Updated 11/17/23 @ 11:54 by MISAEL Parsons) Hx of appendectomy Hx of microdiscectomy Social History Household Members: Family Housing: House Do you presently have visiting nurse or other home services: No Patient Tobacco Use Status: Former Tobacco user Tobacco use type: Cigarette e-Cigarette/Vaping Use: Currently Using service: No Current occupational status: unemployed Cognitive needs: No Hearing needs: No Vision needs: No Questionnaire Thrive Questionnaire Date Thrive assessed: 02/07/24 I am a: Patient What is your living situation today?: I have a steady place to live Within the past 12 months, did the food you bought not last and you didn't have the money to get more?: I choose not to answer this question Within the past 12 months, did you worry whether your food would run out before you got money to buy more?: Never true Do you have trouble paying for medicines?: No Do you have trouble getting transportation to medical appointments?: No Do you have trouble paying your heating and electricity bill?: No Do you have trouble taking care of your child, family member or friend?: No Do you have trouble with day-to-day activities such as bathing, preparing meals, shopping, managing finances, etc.?: No Are you currently unemployed and looking for a job?: No Are you interested in more education?: No Please select the resources that you would like help with: None Currently or been in a relationship where the following occur: I choose not to answer THRIVE Score: 0 AUDIT C Alcohol Use Questionnaire (AUDIT-C) 1. How often do you have a drink containing alcohol?: Never Total Score: 0 BRET-7 AMB Questionnaire BRET-7 Date BRET - 7 assessed: 02/07/24 Feeling nervous, anxious, or on edge: 0 = Not at all Not being able to stop or control worryin = Not at all Worrying too much about different things: 0 = Not at all Trouble relaxin = Not at all Being so restless that it is hard to sit still: 0 = Not at all Becoming easily annoyed or irritable: 0 = Not at all Feeling afraid as if something awful might happen: 0 = Not at all Total BRET-7 score (0-4 normal; 5-9 mild; 10-14 moderate; 15-21 severe): 0 Source: Developed by Drs. Marcos Lynn, Vera Rao, Bill Sandoval and colleagues, with an educational svetlana from [employer]. Review of Systems Const All systems reviewed & are unremarkable except as noted in HPI and below Physical exam (Primary Care) Vital Signs: Last Vital Signs Pulse 87 08/02/24 08:35 BP 106/78 08/02/24 08:35 Pulse Ox 97 08/02/24 08:35 Oxygen Delivery Method Room Air 08/02/24 08:35 BMI result Body Mass Index 36.8 Tobacco/Smoking Status: Tobacco use Status Tobacco use date assessed 08/02/24 08/02/24 08:41 Patient Tobacco Use Status Former Tobacco user 08/02/24 08:41 Tobacco use type Cigarette 08/02/24 08:41 e-Cigarette/Vaping Use Currently Using 08/02/24 08:41 Thrive Assessment: Date of Thrive Assessment Date Thrive assessed 02/07/24 08/02/24 08:41 Currently or been in a relationship where the following occur: I choose not to answer Const General: cooperative and no acute distress Orientation/consciousness: patient oriented x3 Resp Effort & Inspection: normal respiratory effort Auscultation: clear to auscultation bilaterally Cardio Heart sounds: S1 normal heart sound present and S2 normal heart sound present GI Inspection: Yes obesity Neuro General: patient oriented x3, gait normal and moves all extremities Psych Speech and movement: Normal speech and movement present Coding Level of Care Code Est Pt Level 3 (63763) Diagnoses Rectal bleeding K62.5 Slow transit constipation K59.01 Constipation type: slow transit constipation Time Spent (min) 20 Assessment & Plan Assessment & Plan (1) Rectal bleeding: Code(s): K62.5 - Hemorrhage of anus and rectum Plan: Placed referral to GI for colonoscopy Ordered Hydrocortisone cream (2) Constipation: Code(s): K59.00 - Constipation, unspecified Qualifiers: Constipation type: slow transit constipation Qualified Code(s): K59.01 - Slow transit constipation Plan: Increase Fiber intake and fluids Ordered Miralax. Orders: Referrals Gastroenterology Referral K59.01 - Slow transit constipation, K62.5 - Hemorrhage of anus and rectum Medications: New hydrocortisone 2.5% 1 appl [place] BEDTIME PRN 30 grams 1RF hemorrhoids K62.5 - Hemorrhage of anus and rectum polyethylene glycol 3350 (Miralax) 17 grams PO DAILY 30 ea 0RF K59.01 - Slow transit constipation
== END 2024-08-02 08:58 | disposition home or self-care (01) ==
LOC: HO.HMCC 08:34
PROVIDERS: PCP Nurse Practitioner Family; Visit Provider Nurse Practitioner Family
DX: K62.5 Hemorrhage of anus and rectum (principal); K59.01 Slow transit constipation

== ENCOUNTER → 2024-08-02 08:33 | Outpatient (BNVA) | payer OTHER, SELFPAY | PROVIDERS: PCP Nurse Practitioner Family; Visit Provider Nurse Practitioner Family | DX: K62.5 Hemorrhage of anus and rectum (principal); K59.01 Slow transit constipation | CPT/HCPCS: 99212 ==

== ENCOUNTER 2024-11-25 09:09 | Outpatient (AMB) | payer OTHER, SELFPAY ==
--- NOTE | 2024-11-25 09:13 | AM.OFFWIN_ITS ---
Intake Vital Signs 11/25/24 09:15 11/25/24 09:29 11/25/24 09:29 Height 5 ft 7 in Weight 242 lb BMI 37.9 BP 144/80 H 142/100 H 130/70 Blood Pressure Location Lt brachial Lt brachial Lt brachial Position Sitting Standing Supine Pulse 118 H 134 H Pulse Source Pulse Oximeter Pulse Oximeter Temp 98.6 F Temp Source Oral Pulse Oximetry (%) 98 Oxygen Delivery Method Room Air Intake Visit Reasons: EP heart rate elevated, SOB Intake Note: Patient here for SOB and slight dizziness. Patient Tobacco Use Status: Former Tobacco user Allergies No Known Allergies Allergy (Verified 11/25/24 09:16) Do you need a note to return to daycare/school/sports/work: No HPI HPI Comments History of Present Illness Details History of Present Illness - The patient is a 29-year-old male pres enting with racing heart and shortness of breath. - Experienced a sudden onset of rapid he art rate last night while at rest, on the couch scrolling TikTok, described as heart racing. - Current symptoms include feeling out o f breath and difficulty breathing, often described as the need to focus on breathing. - The patient reported feeling mild dizz iness and occasional nausea associated with these episodes. - There is no report of any respiratory symptoms such as cough or congestion, and no recent travel history or excessive caffeine consumption. - Family history is significant for mate rnal colon cancer and potential thyroid issue. - Reports a lifestyle of vaping for thre e years, denying traditional smoking practices. - Past medical history includes sciatica with no current leg pain or related complaints. Denies leg swelling. - TSH 0.95 in January 2024. Physical Exam General: Cooperative, healthy appearing, comfortable, no acute distress and well developed Orientation: Patient oriented x3 Limitations: No limitations Head: Normal to inspection Ears: Hearing grossly normal bilaterally Nose: Normal external nose present Face and sinus: Normal facial exam Eyes: Appearance normal, both eyes and all related structures Neck: Normal visual inspection and Yes full ROM Respiratory: Normal respiratory effort, able to speak in complete sentences. Clear to auscultation bilaterally Cardiovascular: irregular rate and irregular rhythm. Normal S1 and S2 Skin: No rashes or lesions noted Neuro: Patient oriented x3 Extremities: Normal to inspection [facility] Medical History (Updated 11/25/24 @ 09:42 by Cinthia Murdock PA-C) ADHD Surgical History (Updated 11/17/23 @ 11:54 by MISAEL Parsons) Hx of appendectomy Hx of microdiscectomy Social History Household Members: Family Housing: House Do you presently have visiting nurse or other home services: No Patient Tobacco Use Status: Former Tobacco user Tobacco use type: Cigarette e-Cigarette/Vaping Use: Currently Using service: No Current occupational status: unemployed Cognitive needs: No Hearing needs: No Vision needs: No Review of Systems Const All systems reviewed & are unremarkable except as noted in HPI and below Physical Exam Vital Signs: Last Vital Signs Temp 98.6 F 11/25/24 09:15 Pulse 134 H 11/25/24 09:29 BP 130/70 11/25/24 09:29 Pulse Ox 98 11/25/24 09:15 Oxygen Delivery Method Room Air 11/25/24 09:15 BMI result Body Mass Index 37.9 Office Procedures EKG [id number], Complete Assessment & Plan Assessment & Plan (1) Atrial fibrillation with rapid ventricular response: Code(s): I48.91 - Unspecified atrial fibrillation Plan: Plan includes performing an EKG to evaluate the electrical activity of the heart and assess rhythm irregularities. We will monitor and determine appropriate interventions based on EKG results. Acknowledged the patient's history of vaping, with recommendations to consider cessation counseling, considering potential effects though not discussed at the time of this visit. EKG showed afib with RVR rate of 171BPM, called 911 for EMS transport to [facility]. Called [facility] with expect, spoke with Dr Morales. Patient was informed and verbally consented to the use of an ambient scribe for clinic note documentation during this visit Coding Level of Care Code Est Pt Level 5 (52915) Diagnoses Atrial fibrillation with rapid ventricular response I48.91 CPT Codes EKG - CPT: 67298-[id number], Complete ([id number])
[2024-11-25 09:15] VITALS: BP 144/80; PULSE 118; TEMP 37; O2SAT 98; BMI 37.9
[2024-11-25 09:29] VITALS: BP 130/70; BP 142/100; PULSE 134
--- OUTSIDE RECORDS SUMMARY | 2024-11-25 09:46 | XMS_ITS | Clinical Summary ---
Author Organization [facility] Address [address] [place], [place] [id number] Care Team Providers Care Groundskeeper Name Role Phone Aj Spence Primary Care Provider [phone] Allergies No known active allergies Medications Medication Sig Dispensed Refills Start Date End Date Status cyclobenzaprine (FLEXERIL) 10 MG tablet Take 1 tablet (10 mg total) by mouth 3 (three) times a day as needed for muscle spasms. 0 Active oxyCODONE-acetaminoph en (PERCOCET) 5-325 MG per tablet Take 1 tablet by mouth every 4 (four) hours as needed for pain. 12 tablet 0 09/25/2023 Active Active Problems No known active problems Social History Tobacco Use Types Packs/Day Years Used Date Smoking Tobacco: Never Smokeless Tobacco: Current Tobacco Cessation:Ready to Q uit: No; Counseling Given: Yes Alcohol Use Standard Drinks/Week Comments Not Currently 0 (1 standard drink = 0.6 oz pur e alcohol) ocassionally Sex and Gender Information Value Date Recorded Sex Assigned at Male 09/25/2023 9:43 AM EST Gender Identity Male 09/25/2023 9:43 AM EST Sexual Orientation Not on file Job Start Date Occupation Industry Not on file Not on file Not on file Last Filed Vital Signs Vital Sign Reading Time Taken Comments Blood Pressure 120/85 09/25/2023 10:46 AM EST Pulse 82 09/25/2023 10:46 AM EST Temperature 36.7 ??C (98.1 ??F) 09/25/2023 10:[address] Respiratory Rate 18 09/25/2023 10:46 AM EST Oxygen Saturation 99% 09/25/2023 9:05 AM EST Inhaled Oxygen Concentration - - Weight 104.3 kg (230 lb) 09/25/2023 9:05 AM EST Height 170.2 cm (5' 7 ) 09/25/2023 9:05 AM EST Body Mass Index 36.02 09/25/2023 9:05 AM EST Plan of Treatment Not on file Care Teams Groundskeeper Relationship Specialty Start Date End Date Aj Spence [address] [facility] [place] [address] PCP - General Family Medicine 09/25/23
--- OUTSIDE RECORDS SUMMARY | 2024-11-25 09:46 | XMS_ITS | Clinical Summary ---
Author Organization [facility] [address] [place] [address] Care Team Providers Care Cyber Forensics Analyst Name Role Phone Aj Spence NP Primary Care Provider Surgical History Surgery Date Site/Laterality Comments BACK SURGERY 09/04/2022 PROCEDURE:BACK SURGERY APPENDECTOMY 10/02/2018 PROCEDURE:APPENDECTOMY Medical History Medical History Date Comments Lumbar herniated disc DX:Lumbar herniated disc Social History Tobacco Use Types Packs/Day Years Used Date Smoking Tobacco: Never Smokeless Tobacco: Current Alcohol Use Standard Drinks/Week Comments Not Currently 0 (1 standard drink = 0.6 oz pur e alcohol) Sex and Gender Information Value Date Recorded Sex Assigned at Not on file Legal Sex Male 4:34 AM EST Gender Identity Not on file Sexual Orientation Not on file Obstetrics History Plan of Treatment Health Maintenance Due Date Last Done Comments DTaP,Tdap,and Td Vaccines (1 - Tdap) 2015 Hepatitis B Vaccines (1 of 3 - 19+ 3-dose series) 2015 Depression Screening 09/04/2022 HIV Screening 09/04/2022 Hepatitis C Screening 09/04/2022 Social Influencers of Health Screening 09/04/2022 COVID-19 Vaccine ( - 2023-2 5 season) 2024 Influenza Vaccine (#1) 2024 HIB Vaccines Aged Out No longer eligi ble based on patient's age to complete this topic HPV Vaccines Aged Out No longer eligi ble based on patient's age to complete this topic Hepatitis A Vaccines Aged Out No long er eligible based on patient's age to complete this topic IPV Vaccines Aged Out No longer eligi ble based on patient's age to complete this topic MMR Vaccines Aged Out No longer eligi ble based on patient's age to complete this topic Meningococcal ACWY Vaccine Aged Out N o longer eligible based on patient's age to complete this topic Meningococcal B Vacine Aged Out No lo nger eligible based on patient's age to complete this topic Pneumococcal Vaccine: Pediat rics (0 to 5 Years) and At-Risk Patients (6 to 64 Years) Aged Out No longer eligible b ased on patient's age to complete this topic RSV Immunization Patients Un armen 20 months Aged Out No longer eligible b ased on patient's age to complete this topic Varicella Vaccines Aged Out No longer eligible based on patient's age to complete this topic Care Teams Cyber Forensics Analyst Relationship Specialty Start Date End Date Aj Spence NP [address] [facility] [place], [place] PCP - General 09/25/23
== END 2024-11-25 09:53 | disposition home or self-care (01) ==
PROVIDERS: PCP Nurse Practitioner Family; Visit Provider Physician Assistant
DX: I48.91 Unspecified atrial fibrillation (principal)

== ENCOUNTER → 2024-11-25 09:09 | Outpatient (BNVA) | payer OTHER, SELFPAY | PROVIDERS: PCP Nurse Practitioner Family | DX: I48.91 Unspecified atrial fibrillation (principal) | CPT/HCPCS: 93005; 99212 ==

== ENCOUNTER 2024-11-25 10:42 | Inpatient (IN) | payer OTHER, SELFPAY ==
[2024-11-25] VITALS (9 sets, daily range): BP systolic 94–123; BP diastolic 62–93; PULSE 83–144; RESP 14–19; TEMP 36.7–37.1; O2SAT 95–100; BMI 38.6
--- NOTE | 2024-11-25 | ECG_ITS ---
Test Reason : change of heart rhithym Blood Pressure : */* mmHG Vent. Rate : 85 BPM Atrial Rate : 85 BPM P-R Int : 154 ms QRS Dur : 88 ms QT Int : 390 ms P-R-T Axes : 42 53 18 degrees QTcB Int : 464 ms Normal sinus rhythm Normal ECG No significant changes when compared with the previous EKG of 25 nov 2024 Referred By: Wally Ellis Electronically Signed By: HERMELINDA RODRÍGUEZ
--- NOTE | ~2024-11-25 | XR_ITS ---
EXAMINATION: XR CHEST CLINICAL INFORMATION: chest pain COMPARISON: None available. TECHNIQUE: Frontal view of the chest was obtained. FINDINGS: The cardiac, hilar, and mediastinal contours are normal. The lungs are clear bilaterally. No pneumothorax or effusion. No focal osseous or soft tissue abnormality. XR/XR chest 1V IMPRESSION: Normal chest. Electronically signed by: Balbir Michael MD 11/25/2024 11:57 AM [facility]
--- NOTE | 2024-11-25 10:47 | ECG_ITS ---
Test Reason : afib Blood Pressure : */* mmHG Vent. Rate : 144 BPM Atrial Rate : * BPM P-R Int : * ms QRS Dur : 86 ms QT Int : 292 ms P-R-T Axes : * 43 4 degrees QTcB Int : 452 ms Atrial fibrillation with rapid ventricular response Abnormal ECG No previous ECGs available Referred By: Generic ED Physician Electronically Signed By: HERMELINDA RODRÍGUEZ
--- NOTE | 2024-11-25 10:56 | PC.NURSE ---
Per Erlinda, significant other, pt.'s HR reached a high of 240 this morning.
--- NOTE | 2024-11-25 11:03 | ED.ARRPALP ---
HPI - Arrhythmia/Palpitations General Chief Complaint: Dizziness Stated Complaint: NEW ONSET AFIB,SOB,HR 84-169 PER EMS Time Seen by Provider: 11/25/24 10:59 Source: patient Limitations: no limitations History of Present Illness HPI narrative: This is 29 years old the patient presented to the emergency department with a chief complaint of palpitation he was seen at the urgent care and he was sent here by ambulance. Symptoms have been ongoing since yesterday complaint: rapid heart beat and heart racing Onset (ago): day(s) (1) Duration: constant Severity: moderate Context: occurred during rest Associated symptoms: denies other symptoms Related Data Home Medications ?Medication ?Instructions ?Recorded ?Confirmed No Known Home Meds 11/25/24 11/25/24 Allergies Allergy/AdvReac Type Severity Reaction Status Date / Time No Known Allergies Allergy Verified 11/25/24 10:58 Review of Systems Constitutional: Constitutional: Reports no additional constitutional complaints ENT: Reports system reviewed and no additional complaints, except as documented Cardiovascular: Cardiovascular: Reports palpitations Endocrine: Endocrine: Reports palpitations PMFSH Past Medical History Medical History ADHD Surgical History (Updated 11/17/23 @ 11:54 by MISAEL Parsons) Hx of appendectomy Hx of microdiscectomy Social History Social History Household Members: Family Housing: House Do you presently have visiting nurse or other home services: No Patient Tobacco Use Status: Former Tobacco user Tobacco use type: Cigarette e-Cigarette/Vaping Use: Currently Using Advance Directives: No Advance Directives Information Provided: Yes Do you have a plan to hurt others: No Plan service: No Current occupational status: unemployed Cognitive needs: No Hearing needs: No Vision needs: No Physical Exam Vital Signs: Vital Signs: Last Vital Signs Temp 98.1 F 11/25/24 10:57 Pulse 132 H 11/25/24 11:23 Resp 17 11/25/24 10:57 BP 113/81 11/25/24 11:23 Pulse Ox 100 11/25/24 10:57 O2 Del Method Room Air 11/25/24 10:57 BMI result Body Mass Index 38.6 No acute distress Const: General: cooperative Nutritional Appearance: well nourished Orientation/consciousness: patient oriented x3 Limitations: no limitations HEENT: Head: Yes normal to inspection General nose exam: Normal external nose present Face and sinus: Yes normal facial exam Mouth: Normal oral and palatal mucosa present Throat: Yes posterior oropharynx normal Neck: Neck: Yes normal visual inspection and Yes full ROM Resp: Effort & Inspection: normal respiratory effort and able to speak in complete sentences Auscultation: clear to auscultation bilaterally Cardio: Jugular venous distension: no JVD Rate: tachycardic Rhythm: abnormal rhythm GI: Inspection: Yes normal to inspection Palpation (GI): Soft to palpation, not firm and nontender Percussion: Yes normal to percussion Auscultation: normal bowel sounds Skin: General skin exam: no rashes or lesions noted Lesions: no lesions Rashes: no rashes Neuro: General: patient oriented x3 Extrem: General: Yes normal to inspection, Yes full ROM and Yes capillary refill normal Course Reevaluation(s) Reevaluation #1: Patient was found to be in rapid AFib with ventricular response of 144, he was started on IV Cardizem bolus and drip re-examined at 12:50 heart rate controlled now still in AFib Time: 12:56 Reevaluation #2: seen by hospitalist Dr Ellis Medications Administered Generic Name Dose Route Start Last Admin Trade Name Freq PRN Reason Stop Dose Admin Diltiazem HCl 125 mg/ Sodium 125 mls @ 0 mls/hr 11/25/24 11:15 11/25/24 11:23 Chloride IVCONT 10 mg/hr .Q0M LISANDRO 10 mls/hr Administration Protocol Per Protocol Discontinued Medications Generic Name Dose Route Start Last Admin Trade Name Freq PRN Reason Stop Dose Admin Diltiazem HCl 20 mg 11/25/24 11:02 11/25/24 11:13 Diltiazem Hcl 50 Mg/10 Ml Vial IVPUSH 11/25/24 11:03 20 mg ONCE ONE Administration Medical Decision Making Medical Decision Making [facility] Narrative: Patient presented to the emergency department with a rapid AFib will check labs we will keep him in the monitor Differential Diagnosis Differential Diagnoses: The differential diagnosis associated with the presentation includes SVT/SVT slight tachycardia Admission/Observation Consideration of admission/observation: Escalation of care including admission/observation considered Lab Data [facility] Lab Attestation statement: I reviewed the patient's lab results. 11/25/24 11:10 11/25/24 11:10 Labs: Lab Results 11/25/24 11/25/24 Range/Units 11:09 11:10 WBC 8.8 (4.8-10.8) X10*3/uL RBC 5.07 (4.60-5.80) X10*6/uL Hgb 14.3 (14.0-18.0) g/dl Hct 44.5 (42.0-52.0) % MCV 87.8 (80.0-98.0) fL MCH 28.2 (27.0-33.0) pg MCHC 32.1 (31.0-36.0) g/dl RDW 12.4 (11.0-16.0) % Plt Count 262 (160-400) X10*3/uL MPV 10.1 (9.4-12.4) fL Immature Gran % (Auto) 0.2 (0.0-0.4) % Neut % (Auto) 61.0 (45-73) % Lymph % (Auto) 27.4 (20-40) % [place] % (Auto) 9.8 (2-11) % Eos % (Auto) 1.0 (0-4) % Baso % (Auto) 0.6 (0-2) % Lymph # (Auto) 2.4 (1.2-4.9) X10*3/uL [place] # (Auto) 0.9 (0.1-1.2) X10*3/uL Eos # (Auto) 0.1 (0.0-0.4) X10*3/uL Baso # (Auto) 0.1 (0.0-0.2) X10*3/uL Abs Immat Gran (auto) 0.02 (0.00-0.03) X10*3/uL Absolute Neuts (auto) 5.3 (2.0-8.3) x10*3/uL Absolute Nucleated RBC 0.000 (0.0-0.012) X10*3/uL Nucleated RBC % (auto) 0.0 (0.0-0.2) /100WBC PT 11.6 (10.9-12.4) SEC INR 1.0 (0.9-1.1) APTT 30.5 (26.0-36.8) SEC Sodium 141 (135-145) mmol/L Potassium 3.9 (3.3-5.1) mmol/L Chloride 113 H (96-108) mmol/L Carbon Dioxide 20 L (22-29) mmol/L Anion Gap 12 (12-20) BUN 17 H (9-16) mg/dL Creatinine 0.79 (0.5-1.4) mg/dL Estim Creat Clear Calc 166.0 Estimated GFR > 60 Random Glucose 101 (60-115) mg/dL Calcium 9.1 (8.4-10.2) mg/dL Total Bilirubin 0.3 (0.0-1.0) mg/dL AST 25 (5-37) U/L ALT 31 (0-40) U/L Alkaline Phosphatase 64 (39-117) U/L Troponin I High Sens < 2.7 (<3.5-35.0) ng/L Total Protein 7.1 (6.5-8.0) g/dL Albumin 3.9 (3.5-5.0) g/dL Independent Interpretation I performed an independent interpretation of an: EKG Interpretation: EKG was reviewed interpreted by me as rapid atrial fibrillation Radiology Impression Discussion of test interpretation with radiology: I have reviewed the radiologist's reading. Critical Care Time Critical Care Time Total Critical Care Time: 60 Attestation: IV cardizem and titration Discharge Plan Discharge Clinical Impression: Atrial fibrillation with rapid ventricular response Patient Disposition: Admitted As Inpatient Print Language: [place]orese
[2024-11-25] MEDS: dilTIAZem HCL 50 MG/10 ML VIAL 20 MG IVPUSH (11:13)
[2024-11-25 11:20] LABS: MANUAL DIFF FLAG NO
[2024-11-25 11:23] LABS: Basophils Absolute Auto 0.1 X10*3/uL (0.0-0.2); Basophils Percent Auto 0.6 % (0-2); Eosinophils Absolute Auto 0.1 X10*3/uL (0.0-0.4); Hematocrit 44.5 % (42.0-52.0); Hemoglobin 14.3 g/dl (14.0-18.0); Imm Gran Abs Auto 0.02 X10*3/uL (0.00-0.03); Imm Gran Pct Auto 0.2 % (0.0-0.4); Lymphocytes Absolute Auto 2.4 X10*3/uL (1.2-4.9); Lymphocytes Percent Auto 27.4 % (20-40); Mean Corpuscular HGB Conc 32.1 g/dl (31.0-36.0); Mean Corpuscular Hemoglobin 28.2 pg (27.0-33.0); Mean Corpuscular Volume 87.8 fL (80.0-98.0); Mean Platelet Volume 10.1 fL (9.4-12.4); Monocytes Absolute Auto 0.9 X10*3/uL (0.1-1.2); Monocytes Percent Auto 9.8 % (2-11); Neutrophils Absolute Auto 5.3 x10*3/uL (2.0-8.3); Platelet Count 262 X10*3/uL (160-400); Red Blood Count 5.07 X10*6/uL (4.60-5.80); Red Cell Distribution Width 12.4 % (11.0-16.0); White Blood Count 8.8 X10*3/uL (4.8-10.8)
[2024-11-25] MEDS: dilTIAZem HCL 125 MG in 0.9 % Sodium Chloride 100 ML 10 MG IVCONT (11:23)
[2024-11-25 11:29] LABS: Prothrombin Time 11.6 SEC (10.9-12.4)
[2024-11-25 11:32] LABS: Partial Thromboplastin Time 30.5 SEC (26.0-36.8)
[2024-11-25 11:46] LABS: Alanine Aminotransferase 31 U/L (0-40); Albumin Level 3.9 g/dL (3.5-5.0); Alkaline Phosphatase 64 U/L (39-117); Anion Gap 12 (12-20); Aspartate Amino Transferase 25 U/L (5-37); Bilirubin Total 0.3 mg/dL (0.0-1.0); Blood Urea Nitrogen 17 mg/dL (9-16); Calcium 9.1 mg/dL (8.4-10.2); Carbon Dioxide 20 mmol/L (22-29); Chloride 113 mmol/L (96-108); Estimated Glomerular Filt Rate > 60; Glucose Random 101 mg/dL (60-115); Potassium 3.9 mmol/L (3.3-5.1); Sodium 141 mmol/L (135-145); Total Protein 7.1 g/dL (6.5-8.0)
[2024-11-25 11:57] LABS: Troponin-I High Sensitivity < 2.7 ng/L (<3.5-35.0)
--- NOTE | 2024-11-25 13:17 | PHA.MEDREC ---
Addendum entered by Geovanni Jonas RPh 11/25/24 13:44: Med rec was reviewed by Isela. Original Note: Pharmacy Consult ? Medication Reconciliation Pharmacy has completed the medication reconciliation. Spoke with patient to confirm. He is not taking any rx or OTC. He took pepto bismol yesterday but does not use regularly.
--- OUTSIDE RECORDS SUMMARY | 2024-11-25 13:59 | XMS_ITS | Clinical Summary ---
[facility] Organization [facility] Address [address] [place] [address] Care Team Providers Care Summer Nanny Name Role Phone Aj Spence NP Primary Care Provider [phone] Surgical History Surgery Date Site/Laterality Comments BACK [...] age to complete this topic Care Teams Summer Nanny Relationship Specialty Start Date End Date Aj Spence NP [address] [facility] [place], [place] PCP - General 09/25/23
--- OUTSIDE RECORDS SUMMARY | 2024-11-25 13:59 | XMS_ITS | Clinical Summary ---
Author Organization [facility] Address [address] [place], [place] [id number] Care Team Providers Care Crop Consultant Name Role Phone Aj Spence Primary Care Provider [phone] Allergies No known active allergies Medications Medication [...] of Treatment Not on file Care Teams Crop Consultant Relationship Specialty Start Date End Date Aj Spence [address] [facility] [place] [address] PCP - General Family Medicine 09/25/23
--- NOTE | 2024-11-25 14:39 | PM.IMHP ---
History of Present Illness Date of Service: 11/25/24 Chief Complaint: palpitations and shortness of breath The patient is a 29-year-old male with a past medical history significant for chronic back pain and multiple back surgeries who presents to the emergency room with palpitations and shortness of breath which began on the day prior to hospitalization. The patient reports that during the night prior to admission, the patient felt his heart racing and concurrently he felt as if he could not take a deep breath. He reports shortness of breath at rest. He denies any cardiac type chest pain. He denies any cough. He reports some dizziness and intermittent nausea. He denies heavy caffeine intake or alcohol use. He reports vaping for 3 years but denies any tobacco use. He denies any personal history of thyroid disease but does endorse possible thyroid disease in mother. He denies any prior such feelings. He states that he attempted to go to sleep however due to ongoing symptoms and at the urging of his significant, the patient presented to the emergency room. In the ED, the patient was found to have AFib with RVR. He was treated with IV Cardizem push with minimal improvements in his heart rates. He has been subsequently placed on IV Cardizem infusion, currently going at 10 milligrams/hour with heart rates in the 100-110 range. He reports improvement in his respiratory symptoms with improvements in his heart rate. Review of Systems Review of Systems: Negative except HPI/interval history. [facility], [facility] Medical History ADHD Surgical History (Updated 11/17/23 @ 11:54 by MISAEL Parsons) Hx of appendectomy Hx of microdiscectomy Social History Household Members: Family Housing: House Do you presently have visiting nurse or other home services: No Patient Tobacco Use Status: Former Tobacco user Tobacco use type: Cigarette e-Cigarette/Vaping Use: Currently Using Advance Directives: No Advance Directives Information Provided: Yes Do you have a plan to hurt others: No Plan service: No Current occupational status: unemployed Cognitive needs: No Hearing needs: No Vision needs: No Meds Allergies Allergy/AdvReac Type Severity Reaction Status Date / Time No Known Allergies Allergy Verified 11/25/24 10:58 Active Medications: Current Medications Diltiazem HCl 125 mg/ Sodium (Chloride) 125 mls @ 0 mls/hr IVCONT .Q0M [facility]; Protocol Last Admin: 11/25/24 11:23 Dose: 10 mg/hr, 10 mls/hr Home Medications ?Medication ?Instructions ?Recorded ?Confirmed ?Last Taken ?Type No Known Home Meds 11/25/24 11/25/24 Unknown History Physical Exam Vital Signs and Narrative: Vital Signs: Last Vital Signs Temp 98.1 F 11/25/24 10:57 Pulse 132 H 11/25/24 11:23 Resp 17 11/25/24 10:57 BP 113/81 11/25/24 11:23 Pulse Ox 100 11/25/24 10:57 O2 Del Method Room Air 11/25/24 10:57 BMI result Body Mass Index 38.6 Const: Other: Constitutional - Awake and Alert, No apparent distress Eyes - PERRLA, EOMI Cardiovascular - IRR between 100-110s; no jvd; no LE edema b/l Respiratory - Normal lung expansion, Normal respiratory effort, No respiratory distress, CTA bilaterally Gastrointestinal - NT / ND; +BS; No rebound or guarding - No CVA tenderness Extremities - no calf tenderness bilaterally, no swelling Musculoskeletal - Normal inspection, normal ROM Skin - Warm/Dry Neurological - Alert & oriented x3, No focal deficit Psychological - Appropriate affect Results Labs 11/25/24 11:10 11/25/24 11:10 Labs: Laboratory Results - last 24 hr 11/25/24 11/25/24 11:09 11:10 MCV 87.8 MCH 28.2 MCHC 32.1 RDW 12.4 Plt Count 262 MPV 10.1 Immature Gran % (Auto) 0.2 Neut % (Auto) 61.0 Lymph % (Auto) 27.4 [place] % (Auto) 9.8 Eos % (Auto) 1.0 Baso % (Auto) 0.6 Lymph # (Auto) 2.4 [place] # (Auto) 0.9 Eos # (Auto) 0.1 Baso # (Auto) 0.1 Abs Immat Gran (auto) 0.02 Absolute Neuts (auto) 5.3 Absolute Nucleated RBC 0.000 Nucleated RBC % (auto) 0.0 PT 11.6 INR 1.0 APTT 30.5 Anion Gap 12 Estim Creat Clear Calc 166.0 Estimated GFR > 60 Random Glucose 101 Calcium 9.1 Total Bilirubin 0.3 AST 25 ALT 31 Alkaline Phosphatase 64 Total Protein 7.1 Albumin 3.9 Imaging Radiologist's Impressions: Impressions Chest X-Ray 11/25/24 11:03 IMPRESSION: Normal chest. Electronically signed by: Balbir Michael MD 11/25/2024 11:57 AM [facility] Assessment and Plan (1) Atrial fibrillation with rapid ventricular response: Status: Acute Plan 29-year-old male with a history of chronic back pain and multiple back surgeries who presents with sudden onset palpitation and shortness of breath. He was found to be in AFib with RVR. 1. AFib with RVR Currently on Cardizem drip at 10 milligrams/hour, we will continue the same; followed titration protocol [id number] of 0 will consult cardiology - d/w Dr. Moy (reconfirmed with pt as well -- since no CAD history, no prior A. Fib, less than 24 hours of duration) will give Flecainide 300mg x 1 now 2d echo as rates improve no significant risk factors appreciated check TSH (last one in January 2024 was within normal limits) 2. Shortness of breath likely releated to rapid a. fib pt reports improvement with HR decreasing Full Code DVT pptx - Lovenox Quality Stroke Does the patient have a stroke diagnosis?: No VTE Prior VTE?: No VTE Risk Level:: Medical - moderate - high VTE Device Contraindication: N/A - Device Ordered VTE Drug Contraindication: N/A - Med Ordered
[2024-11-25 15:21] LABS: TSH reflex Free T4 0.99 uIU/mL (0.32-4.0)
--- NOTE | 2024-11-25 15:32 | PC.NURSE ---
Awaiting missing Flecainide per pharmacy at this time.
--- NOTE | 2024-11-25 16:03 | PC.NURSE ---
Per MD Caleb - hold Cardizem gtt at this time
[2024-11-25] MEDS: Flecainide Acetate 50 MG TABLET 300 MG PO (16:30)
[2024-11-25] MEDS: 0.9 % Sodium Chloride Flush 3 ML SYRINGE IVFLUSH (16:34)
[2024-11-25] MEDS: Enoxaparin Sodium 40 MG/0.4 ML SYRINGE SUBCUT (16:34)
[2024-11-26] VITALS: BP 116/63; PULSE 88; RESP 20; TEMP 36.4; O2SAT 97
[2024-11-26 00:05] VITALS: BMI 38.4
[2024-11-26 04:00] VITALS: BP 101/56; PULSE 83; RESP 16; TEMP 36.6; O2SAT 95
[2024-11-26] MEDS: 0.9 % Sodium Chloride Flush 3 ML SYRINGE IVFLUSH (05:12)
[2024-11-26 07:27] LABS: Hematocrit 42.6 % (42.0-52.0); Hemoglobin 13.9 g/dl (14.0-18.0); Mean Corpuscular HGB Conc 32.6 g/dl (31.0-36.0); Mean Corpuscular Hemoglobin 28.7 pg (27.0-33.0); Mean Corpuscular Volume 87.8 fL (80.0-98.0); Mean Platelet Volume 10.4 fL (9.4-12.4); Platelet Count 239 X10*3/uL (160-400); Red Blood Count 4.85 X10*6/uL (4.60-5.80); Red Cell Distribution Width 12.1 % (11.0-16.0); White Blood Count 7.2 X10*3/uL (4.8-10.8)
[2024-11-26 07:41] LABS: Anion Gap 11 (12-20); Blood Urea Nitrogen 18 mg/dL (9-16); Calcium 8.7 mg/dL (8.4-10.2); Carbon Dioxide 24 mmol/L (22-29); Chloride 109 mmol/L (96-108); Creatinine Clr Calc Pharmacy 157.6; Estimated Glomerular Filt Rate > 60; Glucose Random 101 mg/dL (60-115); Potassium 3.9 mmol/L (3.3-5.1); Sodium 140 mmol/L (135-145)
--- NOTE | 2024-11-26 07:41 | PM.DS ---
DS: Providers Provider Date of Service: 11/26/24 Date of admission: 11/25/24 14:37 Date of discharge: 11/26/24 Primary care physician: LASHAE Donato Consults: 11/25/24 14:39 Consult to Cardiology Routine Consulting Provider: [facility] Reason for consultation: a. fib rvr DS: Diagnosis Discharge Diagnosis (1) Atrial fibrillation with rapid ventricular response: Status: Acute DS: Summary Hospital Course Hospital Course: admission hpi Chief Complaint: palpitations and shortness of breath The patient is a 29-year-old male with a past medical history significant for chronic back pain and multiple back surgeries who presents to the emergency room with palpitations and shortness of breath which began on the day prior to hospitalization. The patient reports that during the night prior to admission, the patient felt his heart racing and concurrently he felt as if he could not take a deep breath. He reports shortness of breath at rest. He denies any cardiac type chest pain. He denies any cough. He reports some dizziness and intermittent nausea. He denies heavy caffeine intake or alcohol use. He reports vaping for 3 years but denies any tobacco use. He denies any personal history of thyroid disease but does endorse possible thyroid disease in mother. He denies any prior such feelings. He states that he attempted to go to sleep however due to ongoing symptoms and at the urging of his significant, the patient presented to the emergency room. In the ED, the patient was found to have AFib with RVR. He was treated with IV Cardizem push with minimal improvements in his heart rates. He has been subsequently placed on IV Cardizem infusion, currently going at 10 milligrams/hour with heart rates in the 100-110 range. He reports improvement in his respiratory symptoms with improvements in his heart rate. hospital course: Patient presented with palpiation and shortness of breath and diagnosed with atrial fibiration with ventricular response with heart rating toping 140s, he was treated with IV cardizem push but tachycardia persisted and so he was given IV cardizem drip. Cardiology advised Flecainide 300 mg and following this he converted to sinus rythm with heart rate in the 80s, TSH level is normal, Physical Exam Vital Signs: Vital Signs: Last Vital Signs Temp 97.9 F 11/26/24 04:00 Pulse 83 11/26/24 04:00 Resp 16 11/26/24 04:00 BP 101/56 L 11/26/24 04:00 Pulse Ox 95 11/26/24 04:00 O2 Del Method Room Air 11/26/24 04:00 BMI result Body Mass Index 38.4 Const: Other: General: AO X 3, no acute distress Resp: CTA bilateral CVS: S1,S2,RRR GI: +BS, NT, no distention Skin: No rash Neuro: motor grossly intact Psych: appropriate affect DS: Data Data Completed and Pending Completed studies during hospitalization [Text1]: Procedures Excision of Lumbosacral Disc, Open Approach (10/24/23) Fusion of Lumbosacral Joint with Interbody Fusion Device, Anterior Approach, Anterior Column, Open Approach (10/24/23) Insertion of Interspinous Process Spinal Stabilization Device into Lumbosacral Joint, Open Approach (10/24/23) Labs on day of discharge: Laboratory Results - last 24 hr 11/25/24 11/25/24 11/26/24 11:09 11:10 06:54 WBC 8.8 7.2 RBC 5.07 4.85 Hgb 14.3 13.9 L Hct 44.5 42.6 MCV 87.8 87.8 MCH 28.2 28.7 MCHC 32.1 32.6 RDW 12.4 12.1 Plt Count 262 239 MPV 10.1 10.4 Immature Gran % (Auto) 0.2 Neut % (Auto) 61.0 Lymph % (Auto) 27.4 [place] % (Auto) 9.8 Eos % (Auto) 1.0 Baso % (Auto) 0.6 Lymph # (Auto) 2.4 [place] # (Auto) 0.9 Eos # (Auto) 0.1 Baso # (Auto) 0.1 Abs Immat Gran (auto) 0.02 Absolute Neuts (auto) 5.3 Absolute Nucleated RBC 0.000 0.000 Nucleated RBC % (auto) 0.0 0.0 PT 11.6 INR 1.0 APTT 30.5 Sodium 141 Potassium 3.9 Chloride 113 H Carbon Dioxide 20 L Anion Gap 12 BUN 17 H Creatinine 0.79 Estim Creat Clear Calc 166.0 Estimated GFR > 60 Random Glucose 101 Calcium 9.1 Total Bilirubin 0.3 AST 25 ALT 31 Alkaline Phosphatase 64 Troponin I High Sens < 2.7 Total Protein 7.1 Albumin 3.9 TSH 0.99 Discharge Plan Discharge Anticipated Discharge Date/Time: 11/26/24 07:41 Patient Disposition: Home, Self-Care Discharge Diagnosis: AFIB with RVR Referrals: Aj Spence, [facility] [Primary Care Provider] - 1 Week Discharge Medications: No Action No Known Home Meds Diet: Advance to usual diet Activity on Discharge: As tolerated Stand Alone Forms: Patient Portal Discharge page Print Language: Malaysian Care Plan Goals: recovery from atrial fibrilation Health Concerns: atrial fibrilation with palpitations Plan of Treatment: take flecanide if you have palpitations Assessment: see above
[2024-11-26 08:00] VITALS: BP 114/68; PULSE 78; RESP 17; TEMP 36.4; O2SAT 95
--- NOTE | 2024-11-26 08:58 | PM.CNCAR ---
History of Present Illness History of Present Illness Date of Service: 11/26/24 Chief complaint: SOB Palpitations Narrative: This is a cardiology consultation regarding atrial fibrillation. Presentation with palpitations for a few hours and found to be in atrial fibrillation rapid rate. He was given IV Cardizem and then eventually got flecainide. After that, it seems he converted back to sinus rhythm. Total duration is less than a day or so. He states he does not use any alcohol or drugs. He does vape. Otherwise, no previous cardiac issues. No physical limitations overall otherwise. Review of Systems Review of Systems: Yes all other systems are reviewed and are negative Constitutional: Constitutional: Reports as per HPI and Reports no additional constitutional complaints Eyes: Eyes: Reports as per HPI and Denies no additional eye complaints ENT: Denies system reviewed and no additional complaints, except as documented and Reports as per HPI Cardiovascular: Cardiovascular: Reports as per HPI, Reports no additional cardiovascular complaints, Denies acrocyanosis, Denies cool extremities, Denies chest pain, Denies leg edema, Denies lightheadedness, Denies palpitations and Denies dyspnea Respiratory: Respiratory: Reports as per HPI, Denies no additional respiratory complaints and Denies dyspnea Gastrointestinal: Gastrointestinal: Reports as per HPI and Denies no additional gastrointestinal complaints Genitourinary: Genitourinary: Reports no additional male genitourinary complaints and Reports as per HPI Musculoskeletal: Musculoskeletal: Reports no additional musculoskeletal complaints and Reports as per HPI Integumentary/Breasts: Skin/Breast: Reports system reviewed and no additional complaints, except as docu Neurologic: Reports system reviewed and no additional complaints, except as documented and Reports as per HPI Psychiatric: Psychiatric: Reports no additional psychiatric complaints and Reports as per HPI Endocrine: Endocrine: Reports no additional endocrine complaints, Reports as per HPI and Denies palpitations Hematologic/Lymphatic: Hematologic/Lymphatic: Reports no additional hematologic/lymphatic complaints and Reports as per HPI Allergic/Immunologic: Allergic/Immunologic: Reports no additional allergic/immunologic complaints and Reports as per HPI [facility] Past Medical History Medical History ADHD Family History Pertinent family history: No pertinent family history Surgical History Surgical History (Updated 11/17/23 @ 11:54 by MISAEL Parsons) Hx of appendectomy Hx of microdiscectomy Social History Social History Household Members: Significant Other and Children Housing: Apartment Do you presently have visiting nurse or other home services: No Patient Tobacco Use Status: Former Tobacco user Tobacco use type: Cigarette e-Cigarette/Vaping Use: Currently Using service: No Current occupational status: unemployed Cognitive needs: No Hearing needs: No Vision needs: No Meds Allergies Allergy/AdvReac Type Severity Reaction Status Date / Time No Known Allergies Allergy Verified 11/25/24 10:58 Active Medications: Current Medications Acetaminophen (Acetaminophen 325 Mg Tablet) 650 mg PO Q6H PRN PRN Reason: Pain, Mild 1-3,fever,headache Calcium Carbonate (Calcium Carbonate 750 Mg Tab.Chew) 750 mg PO Q4H PRN PRN Reason: Heartburn Enoxaparin Sodium (Enoxaparin Sodium 40 Mg/0.4 Ml Syringe) 40 mg SUBCUT Q24H [facility] Last Admin: 11/25/24 16:34 Dose: 40 mg Magnesium Hydroxide (Milk Of Magnesia 30 Ml Oral.Susp) 30 ml PO DAILY PRN PRN Reason: Constipation Melatonin (Melatonin 3 Mg Tablet) 6 mg PO BEDTIME PRN PRN Reason: Insomnia Metoprolol Succinate (Metoprolol Succinate Er 25 Mg Tab.Er.24h) 25 mg PO DAILY LISANDRO; Protocol Sodium Chloride (0.9 % Sodium Chloride Flush 3 Ml Syringe) 3 ml IVFLUSH QSHIFT [facility] Last Admin: 11/26/24 05:12 Dose: 3 ml Physical Exam Vital Signs: Vital Signs: Last Vital Signs Temp 97.5 F 11/26/24 08:00 Pulse 78 11/26/24 08:00 Resp 17 11/26/24 08:00 BP 114/68 11/26/24 08:00 Pulse Ox 95 11/26/24 08:00 O2 Del Method Room Air 11/26/24 08:00 BMI result Body Mass Index 38.4 Const: General: comfortable and no acute distress Orientation/consciousness: patient oriented x3 HEENT: Other: Unremarkable Head: Yes normal to inspection Neck: Neck: Yes normal visual inspection Chest: Chest palpation & inspection: normal inspection of the chest Resp: Auscultation: clear to auscultation bilaterally Cardio: Palpation: normal PMI Heart sounds: S1 normal heart sound present, S2 normal heart sound present, no gallops, no murmurs and no rubs GI: Palpation (GI): Soft to palpation Back/Spine/Pelvis: Other: unremarkable Skin: General skin exam: no rashes or lesions noted Neuro: General: patient oriented x3 Extrem: General: Yes normal to inspection Psych: Mental Status: mental status grossly normal Objective Labs and Meds 11/26/24 06:54 11/26/24 06:54 Lab results: Laboratory Results - last 24 hr 11/25/24 11/25/24 11/26/24 11:09 11:10 06:54 WBC 8.8 7.2 RBC 5.07 4.85 Hgb 14.3 13.9 L Hct 44.5 42.6 MCV 87.8 87.8 MCH 28.2 28.7 MCHC 32.1 32.6 RDW 12.4 12.1 Plt Count 262 239 MPV 10.1 10.4 Immature Gran % (Auto) 0.2 Neut % (Auto) 61.0 Lymph % (Auto) 27.4 [place] % (Auto) 9.8 Eos % (Auto) 1.0 Baso % (Auto) 0.6 Lymph # (Auto) 2.4 [place] # (Auto) 0.9 Eos # (Auto) 0.1 Baso # (Auto) 0.1 Abs Immat Gran (auto) 0.02 Absolute Neuts (auto) 5.3 Absolute Nucleated RBC 0.000 0.000 Nucleated RBC % (auto) 0.0 0.0 PT 11.6 INR 1.0 APTT 30.5 Sodium 141 140 Potassium 3.9 3.9 Chloride 113 H 109 H Carbon Dioxide 20 L 24 Anion Gap 12 11 L BUN 17 H 18 H Creatinine 0.79 0.83 Estim Creat Clear Calc 166.0 157.6 Estimated GFR > 60 > 60 Random Glucose 101 101 Calcium 9.1 8.7 Total Bilirubin 0.3 AST 25 ALT 31 Alkaline Phosphatase 64 Troponin I High Sens < 2.7 Total Protein 7.1 Albumin 3.9 TSH 0.99 ECG Interpretation: Initial EKG-atrial fibrillation at a rate of 144/Min. Repeat EKG-EKG with underlying sinus rhythm at 85/Min; no significant ST-T changes and otherwise unremarkable. Imaging Radiologist's impression: Impressions Chest X-Ray 11/25/24 11:03 IMPRESSION: Normal chest. Electronically signed by: Balbir Michael MD 11/25/2024 11:57 AM [facility] Assessment and Plan (1) Atrial fibrillation with rapid ventricular response: Status: Acute Plan Status post Cardizem, flecainide and now in sinus rhythm. He can do low-dose beta-blockers for the time being. No need for anticoagulation. He would like to go home and hence we will get an echocardiogram, Holter and possibly sleep study as an outpatient. Follow-up will be arranged. Procedures Date of Service Date of Service: 11/26/24
--- NOTE | 2024-11-26 12:31 | MHC.CM.PN ---
EMR REVIEWED, PT W/SOB/PALPITATIONS, CM MET W/PT WHO IS A&OX4, PT REPORTS HE WOULD LIKE TO DC JUN AND DOES NOT WANT TO WAIT FOR ECHO REPORTING HE WILL FOLLOW-UP OUTPT, PT IS FULLY INDEP W/ALL CARE, DENIES USE OF DME/SERVICES. PCP ON FILE VERIFIED, PT EDUCATED ON AND DECLINES TO COMPLETE A HCP AT THIS TIME. PT DISCHARGING HOME SELF CARE, PT HAS ARRANGED TRANSPORT
== END 2024-11-26 09:51 | disposition home or self-care (01) | DRG 201 ==
LOC: HO.ED 12:55 → HO.EDOVER 14:46 → HO.IMC 19:34
PROVIDERS: Admitting Provider Family Medicine; Emergency Provider Emergency Medicine; PCP Nurse Practitioner Family; Visit Provider Internal Medicine
DX: I48.91 Unspecified atrial fibrillation (principal); Z87.891 Personal history of nicotine dependence
CPT/HCPCS: 36415; 71045; 80048; 80053; 84443; 84484; 85025; 85027; 85610; 85730; 93005; 99285; J1650; Q9957

== ENCOUNTER → 2024-11-25 10:47 | Outpatient (BNV) | payer OTHER, SELFPAY | PROVIDERS: Emergency Provider Emergency Medicine; PCP Nurse Practitioner Family; Visit Provider Internal Medicine | DX: I48.91 Unspecified atrial fibrillation (principal) | CPT/HCPCS: 93010 ==

== ENCOUNTER → 2024-11-25 11:03 | Outpatient (BNV) | payer OTHER, SELFPAY | PROVIDERS: Emergency Provider Emergency Medicine; Visit Provider Radiology Diagnostic Radiology | DX: R07.9 Chest pain, unspecified (principal) | CPT/HCPCS: 71045 ==

== ENCOUNTER → 2024-11-25 14:37 | Outpatient (BNV) | payer OTHER, SELFPAY | PROVIDERS: Admitting Provider Family Medicine; Emergency Provider Emergency Medicine; PCP Nurse Practitioner Family; Visit Provider Family Medicine | DX: I48.91 Unspecified atrial fibrillation (principal) | CPT/HCPCS: 99223 ==

== ENCOUNTER → 2024-11-25 14:37 | Outpatient (BNV) | payer OTHER, SELFPAY | PROVIDERS: Admitting Provider Family Medicine; Emergency Provider Emergency Medicine; PCP Nurse Practitioner Family; Visit Provider Internal Medicine | DX: I48.91 Unspecified atrial fibrillation (principal) | CPT/HCPCS: 99223 ==

== ENCOUNTER → 2024-12-17 09:48 | Outpatient (REF) | payer OTHER, SELFPAY ==
--- NOTE | 2024-12-17 09:52 | CA_ITS ---
Transthoracic Echocardiogram Patient (Last, First, Middle): Jignesh Bo, Gender: Male Date of : 1995 Age: 29 Procedure Date: 12/17/2024 Procedure Type: Transthoracic Echocardiogram Location: OP Height: 170.18 cm Weight: 110.22 kg BSA: 2.20 m2 Heart Rate: 68 bpm BP: 118 / 68 mmHg Cotton Tipper: ANEESH Referring MD: Benja Moy MD Php Magento Developer: Boris Tubbs MD Symptoms: I48.91 - Unspecified atrial fibrillation Study Quality: Adequate w contrast ECG Rhythm: Sinus Conclusions: - Essentially normal study Findings Left Ventricle Normal left ventricular size, thickness, and systolic function. The visually estimated ejection fraction is between 60-65%. Spectral Doppler is indicative of a normal filling pattern. Right Ventricle Normal right ventricular cavity size and systolic function. Atria The left atrium is normal in size. Interatrial shunt cannot be excluded. The right atrium was not well visualized. Aortic Valve The aortic valve structure and function is likely normal. There is no aortic valve stenosis. There is no aortic valve regurgitation. Mitral Valve Likely normal mitral valve structure and function. There is no mitral valve regurgitation. There is no mitral valve stenosis. Pulmonic Valve The pulmonic valve was not well visualized. Tricuspid Valve Likely normal tricuspid valve structure and function. Tricuspid regurgitation envelope is inadequate for calculation of right ventricular systolic pressure. Normal right atrial pressure. Great Vessels All visible segments of the aorta are normal in size. The pulmonary artery was not well visualized. There is no dilatation of the ascending aorta measuring 2.70 cm. Venous The inferior vena cava is normal in size. Pericardium/Pleural The pericardium was not well visualized. Prior Study Comparison No prior study available for comparison. Measurements 2D Linear Measurements IVSd: 1.06 0.6-0.9/0.6-1.0 cm LVIDd: 4.95 3.9-5.3/4.2-5.9 cm LVIDd Index: 2.25 2.4-3.2/2.2-3.1 cm/m2 LVIDs: 3.40 2.0-3.6 cm LVPWd: 0.76 0.7-1.1 cm LA Diam: 3.50 2.7-3.8/3.0-4.0 cm LAIDs Index: 1.59 1.5-2.3 cm/m2 LV Mass: 196.42 67-162/88-224 g LV Mass Index: 89.28 43-95/49-115 g/m2 LVOT Diam: 2.00 3.0+(-)1.3 cm 2D Systolic Function EF 4C: 57.20 >55% EF 2C: 67.50 >55% EF BiP: 62.20 >55% Mitral Valve MV Pk E: 0.88 MV PK A: 0.61 MV Decel Time: 180.00 E/A: 1.40 E'Lateral: 10.40 E'Medial: 6.85 E/E' Med: 12.90 E/E' Lat: 8.50 PHT: 53.00 MVA PHT: 4.15 Decel Burnet: 4.92 Aortic Valve AoV Pk Wai: 1.31 AoV Pk Grad: 7.00 LAURA: 2.83 LVOT LVOT Pk Wai: 1.19 LVOT Mn Wai: 0.78 LVOT VTI: 0.23 LVOT Pk Grad: 6.00 LVOT Mn Grad: 3.00 LVOT Diam: 2.00 LVOT Area: 3.14 Diastolic Function MV Pk E: 0.88 MV Pk A: 0.61 E/A: 1.40 E'Medial: 6.85 E/E' Med: 12.90 E' Laterial: 10.40 E/E' Lat: 8.50 Right Ventricle TAPSE (mm): 18.80 TVS' Wai: 10.80 Tricuspid Valve RA Press: 3.00 Great Vessels Aorta Sinus of Valsalva: 3.20 2.0-3.5 cm Ao Asc: 2.70 2.1-3.4 cm Ao Arch: 2.40 Ao Desc: 1.40 Pulmonary Veins Pulm Vein S/D 1.20 Pulmonary Valve PV Pk Wai: 0.79 Peak PV Grad: 3.00 Updated in Other Vendor System with Status of Final Boris Tubbs MD electronically signed on 12/17/2024 12:19:29 PM with status of Final
--- OUTSIDE RECORDS SUMMARY | 2024-12-17 10:52 | XMS_ITS | Clinical Summary ---
Author Organization [facility] Address [address] [place], [place] [id number] Care Team Providers Care Ski Edge Painter Name Role Phone Aj Spence Primary Care Provider [phone] Allergies No known active allergies Medications Medication [...] of Treatment Not on file Care Teams Ski Edge Painter Relationship Specialty Start Date End Date Aj Spence [address] [facility] [place] [id number] PCP - General Family Medicine 09/25/23
--- OUTSIDE RECORDS SUMMARY | 2024-12-17 10:52 | XMS_ITS ---
Author Name [facility] Organization Unknown Encounters Encounter Type Encounter Reason Primary Diagnosis Location Date Emergency Sciatica, unspecifie d side Sciatica, unspecified side [facility] 09/25/2023 Care Team Organization Name Specialty Phone Email Start Date End Da ashleigh [facility] 10/22/2023 [facility] 09/27/2023 [facility] 09/25/2023
--- OUTSIDE RECORDS SUMMARY | 2024-12-17 10:52 | XMS_ITS | Clinical Summary ---
Author Organization [facility] Address [address] [place] [address] Care Team Providers Care Loom Cleaner Name Role Phone Aj Spence NP Primary Care Provider [phone] Surgical History Surgery Date Site/Laterality Comments BACK [...] age to complete this topic Care Teams Loom Cleaner Relationship Specialty Start Date End Date Aj Spence NP [address] [facility] [place], [place] PCP - General 09/25/23
== END ==
LOC: HO.CARD 09:48
PROVIDERS: PCP Nurse Practitioner Family; Visit Provider Internal Medicine
DX: I48.91 Unspecified atrial fibrillation (principal)
CPT/HCPCS: 93242; 93306; Q9957

== ENCOUNTER → 2024-12-17 09:52 | Outpatient (BNV) | payer OTHER, SELFPAY | PROVIDERS: PCP Nurse Practitioner Family; Visit Provider Internal Medicine Cardiovascular Disease | DX: I48.91 Unspecified atrial fibrillation (principal) | CPT/HCPCS: 93306 ==

== ENCOUNTER 2025-01-08 12:56 | Outpatient (AMB) | payer OTHER, SELFPAY ==
[2025-01-08 13:01] VITALS: BP 118/68; PULSE 78; O2SAT 98; BMI 38.2
--- NOTE | 2025-01-08 13:01 | A.OFFPC_ITS ---
Vital Signs 01/08/25 13:01 Height 5 ft 7 in Weight 244 lb BMI 38.2 BP 118/68 Blood Pressure Location Lt brachial Position Sitting Pulse 78 Pulse Source Pulse Oximeter Pulse Oximetry (%) 98 Oxygen Delivery Method Room Air Intake Visit Reasons: weight loss options Intake Note: pt is here for weight loss options, insurance will cover tirzepatide Fertilizer Applicator Required: No Accompanied by: Self / Same As Patient Allergies No Known Allergies Allergy (Verified 01/08/25 13:01) Medication List - Last Reconciled 01/08/25 by MYNOR VickP- metoprolol succinate ER 50 mg See Protocol PO DAILY tirzepatide (weight loss) (Zepbound) 2.5 mg (0.5 mL) subcut QWEEK Tobacco use date assessed: 01/08/25 Dental Screening Dental Screen Date: 01/08/25 Did you have a dental visit in the last 12 months?: Yes Did you have a dental problem in the last 6 months where you did not have access to dental care?: No Was dental information given to patient?: Patient has dentist HPI weight loss options HPI Details Chief Complaint The patient reports intermittent palpitations and episodes of increased heart rate with minimal exertion. History of Present Illness The patient is a 29-year-old male presenting for follow-up concerning Atrial Fibrillation, recently diagnosed. He reports experiencing palpitations and a rapid heart rate with minimal activity. This condition has been alarming for him, and he expresses concern about engaging in physical activities. Additionally, he suffers from chronic lower back pain following a microdiscectomy conducted in 2021. He describes localized pain without radicular symptoms, pointing to the surgical site on his lumbar spine. This persistent pain has deterred him from continuing his prior gym routine, previously a significant part of his lifestyle. Social History - Historically engaged in gym activities but currently inactive due to Atrial Fibrillation and back pain concerns - Right now, there's no mention of emplo yment, family status, nutritional intake, or other lifestyle factors discussed Health Maintenance - Encouraged to maintain a regular stret sweta routine - Discussed potential benefits from weig ht loss in managing Atrial Fibrillation and alleviating back pain Review of Systems - Cardiovascular: Reports palpitations a nd rapid heart rate with minimal e xertion - Musculoskeletal: Denies radicular symp toms; Reports ongoing lower back pain -denies any dizziness, n/v, fevers, chil ls, cauda equina s/s. Physical Exam General: Cooperative, healthy appearing, comfortable, no acute distress and well developed, obese Orientation: Patient oriented x3 Limitations: No limitations Head: Normal to inspection Ears: Hearing grossly normal bilaterally Nose: Normal external nose present Face and sinus: Normal facial exam Eyes: Appearance normal, both eyes and all related structures Neck: Normal visual inspection and Yes full ROM Respiratory: Normal respiratory effort and able to speak in complete sentences. Clear to auscultation bilaterally Cardiovascular: Normal S1 and S2 GI: Normal to inspection. Soft to palpation and nontender Skin: No rashes or lesions noted Neuro: Patient oriented x3 Extremities: Normal to inspection. Negative straight leg raises. No exacerbation of pain in the back with heel and toe walking. Results Plan The management of the patient's Atrial Fibrillation includes increasing his metoprolol dosage to 50 mg with careful monitoring. He has been advised to revert to his prior dosage should side effects occur. We have initiated Zepbound (obesity) to facilitate weight loss, potentially improving cardiac and pain symptoms. An x-ray of the lumbar spine is planned to monitor his surgical site. I encouraged continuing stretching exercises and discussed the importance of cautious physical activity as beneficial, despite concerns about current symptoms. Follow-up with cardiology is scheduled for 20 days later. Discussion Notes I discussed with the patient the implications of increasing his metoprolol dosage and potential side effects, with reassurances about returning to the previous dose if needed. The initiation of Zepbound was explored as a means to mitigate symptoms of Atrial Fibrillation and provide relief for chronic back pain (obese). . Education about the importance of weight management and structured physical activity was provided, emphasizing the potential benefits. An upcoming lumbar spine x-ray was ordered to ensure post-surgical management is adequate, and future follow-up with cardiology was confirmed for ongoing Atrial Fibrillation care. Patient Instructions - Take increased dosage of metoprolol as prescribed, return to previous dose if orthostatic symptoms - Start Zepbound to assist with weight m anagement and symptom relief - Engage in regular stretching exercises and consider cautious physical activity - Monitor heart rate during periods of a ctivity and report significant changes - Follow up with education reviewer in 20 days - Seek immediate care if experiencing se karen symptoms such as shortness of breath or extreme dizziness - Obtain a lumbar spine x-ray as schedul ed PFSH Medical History ADHD Surgical History Hx of appendectomy Hx of microdiscectomy Social History Household Members: Significant Other and Children Housing: Apartment Do you presently have visiting nurse or other home services: No Patient Tobacco Use Status: Former Tobacco user Tobacco use type: Cigarette e-Cigarette/Vaping Use: Currently Using service: No Current occupational status: unemployed Cognitive needs: No Hearing needs: No Vision needs: No Questionnaire PHQ-9 Over the last 2 weeks, how often have you been bothered by any of the following problems? 1. Little interest or pleasure in doing things: not at all 2. Feeling down, depressed, or hopeless: not at all 3. Trouble falling or staying asleep, or sleeping too much: not at all 4. Feeling tired or having little energy: not at all 5. Poor appetite or overeating: not at all 6. Feeling bad about yourself - or that you are a failure or have let yourself or your family down: not at all 7. Trouble concentrating on things, such as reading the newspaper or watching te levision: not at all 8. Moving or speaking so slowly that other people could have noticed. Or the opposite - being so fidgety or restless that you have been moving around a lot more than usual: not at all 9. Thoughts that you would be better off or of hurting yourself in some way: not at all Total score: 0 Depression Screening Interpretation: Negative Depression Screening Done: Yes 19331 - PHQ-9 Billing: Yes Source: Developed by Drs. Marcos Lynn, Vera Rao, Bill Sandoval and colleagues, with an educational svetlana from [employer]. Thrive Questionnaire Date Thrive assessed: 01/08/25 I am a: Patient What is your living situation today?: I have a steady place to live Within the past 12 months, did the food you bought not last and you didn't have the money to get more?: I choose not to answer this question Within the past 12 months, did you worry whether your food would run out before you got money to buy more?: I choose not to answer this question Do you have trouble paying for medicines?: I choose not to answer this question Do you have trouble getting transportation to medical appointments?: I choose not to answer this question Do you have trouble paying your heating and electricity bill?: I choose not to answer this question Do you have trouble taking care of your child, family member or friend?: I choose not to answer this question Do you have trouble with day-to-day activities such as bathing, preparing meals, shopping, managing finances, etc.?: I choose not to answer this question Are you currently unemployed and looking for a job?: I choose not to answer this question Are you interested in more education?: I choose not to answer this question Please select the resources that you would like help with: None Currently or been in a relationship where the following occur: I choose not to answer THRIVE Score: 0 AUDIT C Alcohol Use Questionnaire (AUDIT-C) 1. How often do you have a drink containing alcohol?: Never 3. How often do you have six or more drinks on one occasion?: Never Total Score: 0 Score Reviewed/Action Taken: Yes BRET-7 AMB Questionnaire BRET-7 Date RBET - 7 assessed: 01/08/25 Feeling nervous, anxious, or on edge: 0 = Not at all Not being able to stop or control worryin = Not at all Worrying too much about different things: 0 = Not at all Trouble relaxin = Not at all Being so restless that it is hard to sit still: 0 = Not at all Becoming easily annoyed or irritable: 0 = Not at all Feeling afraid as if something awful might happen: 0 = Not at all Total BRET-7 score (0-4 normal; 5-9 mild; 10-14 moderate; 15-21 severe): 0 Source: Developed by Drs. Marcos Lynn, Vera Rao, Bill Sandoval and colleagues, with an educational svetlana from [employer]. BRET-7 Assessment Billing BRET-7 Assessment Tool: BRET-7 Assessment 28799 Physical exam (Primary Care) Vital Signs: Last Vital Signs Pulse 78 01/08/25 13:01 BP 118/68 01/08/25 13:01 Pulse Ox 98 01/08/25 13:01 Oxygen Delivery Method Room Air 01/08/25 13:01 BMI result Body Mass Index 38.2 Tobacco/Smoking Status: Tobacco use Status Tobacco use date assessed 01/08/25 01/08/25 13:08 Patient Tobacco Use Status Former Tobacco user 01/08/25 13:08 Tobacco use type Cigarette 01/08/25 13:08 e-Cigarette/Vaping Use Currently Using 01/08/25 13:08 PHQ-9: PHQ-9 Score PHQ-9: Total score 0 01/08/25 14:01 Depression Screening Interpretation: Negative Thrive Assessment: Date of Thrive Assessment Date Thrive assessed 01/08/25 01/08/25 13:08 Currently or been in a relationship where the following occur: I choose not to answer Coding Level of Care Code Est Pt Level 3 (20355) Diagnoses Nerve root compression G54.9 Lumbar disc herniation M51.26 S/P lumbar microdiscectomy Z98.890 Additional Codes BRET-7 Assessment Billing - BRET-7 Assessment Tool: BRET-7 Assessment 22177 ([id number]) PHQ-9 - 96900 - PHQ-9 Billing: Yes ([id number]) Assessment & Plan Assessment & Plan (1) Nerve root compression: Code(s): G54.9 - Nerve root and plexus disorder, unspecified Category: Medical (2) Lumbar disc herniation: Code(s): M51.26 - Other intervertebral disc displacement, lumbar region Category: Medical (3) S/P lumbar microdiscectomy: Code(s): Z98.890 - Other specified postprocedural states Category: Surgical Plan . Orders: Orders XR lumbar spine 2-3V Today G54.9 - Nerve root and plexus disorder, unspecified, M51.26 - Other intervertebral disc displacement, lumbar region, Z98.890 - Other specified postprocedural states Complete Blood Count Auto Diff Today E66.9 - Obesity, unspecified, I48.91 - Unspecified atrial fibrillation TSH reflex Free T4 Today E66.9 - Obesity, unspecified, I48.91 - Unspecified atrial fibrillation UA CC w/rflx Micro + Cult Today E66.9 - Obesity, unspecified, I48.91 - Unspecified atrial fibrillation Comprehensive [place]. Panel Fast Today E66.9 - Obesity, unspecified, I48.91 - Unspecified atrial fibrillation Lipid Panel Today E66.9 - Obesity, unspecified, I48.91 - Unspecified atrial fibrillation Medications: New tirzepatide (weight loss) (Zepbound) for 4 weeks 2.5 mg (0.5 mL) subcut QWEEK 2 mL 0RF Changed From metoprolol succinate ER 25 mg See Protocol PO DAILY 90 tabs 0RF To metoprolol succinate ER 50 mg See Protocol PO DAILY 30 tabs 2RF
--- OUTSIDE RECORDS SUMMARY | 2025-01-08 15:01 | XMS_ITS | Clinical Summary ---
[facility] Organization [facility] Address [address] [place] [address] Care Team Providers Care Animal Nurse Name Role Phone Aj Spence NP Primary [...] age to complete this topic Meningococcal B Vaccine Aged Out No l onger eligible based on patient's age to complete [...] age to complete this topic Care Teams Animal Nurse Relationship Specialty Start Date End Date Aj Spence NP [address] [facility] [place], [place] PCP - General 09/25/23
--- OUTSIDE RECORDS SUMMARY | 2025-01-08 15:01 | XMS_ITS | Clinical Summary ---
Author Organization [facility] Address [address] [place], [place] [id number] Care Team Providers Care Radio Maintainer Name Role Phone Aj Spence Primary Care Provider [phone] Allergies No known active allergies Medications Medication [...] of Treatment Not on file Care Teams Radio Maintainer Relationship Specialty Start Date End Date Aj Spence [address] [facility] [place] [address] PCP - General Family Medicine 09/25/23
== END 2025-01-08 14:34 | disposition home or self-care (01) ==
LOC: HO.HMCC 12:58
PROVIDERS: PCP Nurse Practitioner Family; Visit Provider Nurse Practitioner Family
DX: G54.9 Nerve root and plexus disorder, unspecified (principal); M51.26 Other intervertebral disc displacement, lumbar region; Z98.890 Other specified postprocedural states

== ENCOUNTER → 2025-01-08 12:56 | Outpatient (BNVA) | payer OTHER, SELFPAY | PROVIDERS: PCP Nurse Practitioner Family; Visit Provider Nurse Practitioner Family | DX: R00.2 Palpitations (principal); I48.91 Unspecified atrial fibrillation; M51.26 Other intervertebral disc displacement, lumbar region; E66.9 Obesity, unspecified; Z68.38 Body mass index [BMI] 38.0-38.9, adult; Z98.890 Other specified postprocedural states | CPT/HCPCS: 96127; 99212 ==

== ENCOUNTER 2025-01-28 09:45 | Outpatient (REF) | payer OTHER, SELFPAY ==
--- NOTE | ~2025-01-28 | XR_ITS ---
EXAMINATION: XR LUMBOSACRAL SPINE CLINICAL INFORMATION: Z98.890 - Other specified postprocedural states COMPARISON: None available. TECHNIQUE: Three views of the lumbosacral spine. FINDINGS: There is no significant scoliosis. There is straightening of the normal lordosis. There has been posterior fusion and discectomy of L5-S1 with transpedicular screws, posterior connecting rods, and placement of disc prosthesis in the left aspect of the disc space. Hardware is intact, well seated, without definite periscrew lucencies. There is no fracture, compression deformity, or suspicious bone lesion. There is normal alignment without subluxation. Mild disc degeneration/narrowing L3-4. Disc spaces otherwise normal. Normal facet alignment. No significant facet degenerative change. The sacrum is intact. The SI joints appear normal. There is no soft tissue abnormality. XR/XR lumbar spine 2-3V IMPRESSION: Posterior fusion L5-S1 without complication. Electronically signed by: Balbir Michael MD 01/30/2025 12:03 PM EDT
--- OUTSIDE RECORDS SUMMARY | 2025-01-28 12:16 | XMS_ITS | Clinical Summary ---
[facility] Organization [facility] Address [address] [place] [address] Care Team Providers Care Investment Analyst Name Role Phone Aj Spence NP Primary Care Provider [phone] Surgical History Surgery Date Site/Laterality Comments BACK [...] age to complete this topic Care Teams Investment Analyst Relationship Specialty Start Date End Date Aj Spence NP [address] [facility] [place], [place] PCP - General 09/25/23
--- OUTSIDE RECORDS SUMMARY | 2025-01-28 12:16 | XMS_ITS | Clinical Summary ---
Author Organization [facility] Address [address] [place], [place] [id number] Care Team Providers Care Hand Stapler Name Role Phone Aj Spence Primary Care Provider [phone] Allergies No known active allergies Medications Medication [...] of Treatment Not on file Care Teams Hand Stapler Relationship Specialty Start Date End Date Aj Spence [address] [facility] [place] [address] PCP - General Family Medicine 09/25/23
== END 2025-01-28 09:46 | disposition home or self-care (01) ==
LOC: HO.HMGCX 09:45
PROVIDERS: PCP Nurse Practitioner Family; Referring Provider Nurse Practitioner Family; Visit Provider Nurse Practitioner Family
DX: I48.0 Paroxysmal atrial fibrillation (principal); M51.26 Other intervertebral disc displacement, lumbar region; E66.9 Obesity, unspecified; Z79.899 Other long term (current) drug therapy; Z72.0 Tobacco use; Z98.890 Other specified postprocedural states
CPT/HCPCS: 72100; 99212

== ENCOUNTER 2025-01-28 09:45 | Outpatient (AMB) | payer OTHER, SELFPAY ==
[2025-01-28 09:49] VITALS: BP 108/82; PULSE 76; BMI 37.6
--- NOTE | 2025-01-28 09:49 | MHC.OFFVIS ---
Vital Signs 01/28/25 09:49 Height 5 ft 7 in Weight 239 lb 13.807 oz BMI 37.6 BP 108/82 Blood Pressure Location Lt brachial Position Sitting Pulse 76 Pulse Source Pulse Oximeter Intake Visit Reasons: F/U s/p testing Lugger Required: No Allergies No Known Allergies Allergy (Verified 01/28/25 09:52) Medication List - Last Reconciled 01/28/25 by HARRISON LaraC metoprolol succinate ER 50 mg See Protocol PO DAILY tirzepatide (weight loss) (Zepbound) 2.5 mg (0.5 mL) subcut QWEEK HPI HPI F/U s/p testing: Details: Jignesh is a 29-year-old male past medical history of obesity, vaping, chronic back pain who recently presented to [facility] ER with heart palpitations and was found to have AFib RVR. He was treated with IV diltiazem and then flecainide. He did convert to normal sinus rhythm and was sent home with metoprolol. An outpatient echocardiogram was normal and Holter monitor showed no recurrent AFib. Today he reports that since his hospital discharge he did notice heart palpitations that were similar to what he presented to the hospital with. This occurred when he skipped a dose of metoprolol. Since that time his PCP increased his dose up to 50 mg daily and he has not had any recurrent heart palpitations. He does not get chest discomfort, shortness of breath, lightheadedness. He says his activity is limited by chronic back pain and tells me he has had surgery x3. He is on disability for this problem. He tries to remain physically active with his young children. He does have daytime fatigue and tells me he wakes up gasping at night. He does not use any illicit substances or excess caffeine, such as energy drinks. He does vape but tells me he has done this for 3 years with no recent change in his nicotine dose. [facility] Medical History (Reviewed 01/08/25 @ 14:19 by PETRA [facility] ADHD Surgical History Hx of appendectomy Hx of microdiscectomy Social History Household Members: Significant Other and Children Housing: Apartment Do you presently have visiting nurse or other home services: No Patient Tobacco Use Status: Former Tobacco user Tobacco use type: Cigarette e-Cigarette/Vaping Use: Currently Using service: No Current occupational status: unemployed Cognitive needs: No Hearing needs: No Vision needs: No Review of Systems Const All systems reviewed & are unremarkable except as noted in HPI and below ENT Denies dizziness Card Details: palpitations when missed dose of Metoprolol Denies chest pain, Denies chest pain at rest, Denies chest pain with activity, Reports rapid heart rate, Denies pedal edema, Denies edema, Denies leg edema, Denies lightheadedness, Denies palpitations, Denies dyspnea, Denies dyspnea on exertion and Denies orthopnea Resp Denies cough, Denies dyspnea and Denies dyspnea on exertion GI Denies hematochezia and Denies change in stool character Musc Details: chronic back pains Denies abnormal gait, Denies limited range of motion, Denies muscle cramps, Denies muscle weakness, Denies numbness, Denies radiating pain into limb, Denies stiffness and Denies tingling Neuro Denies abnormal gait, Denies dizziness, Denies numbness and Denies tingling Endo Denies palpitations Physical Exam Vital Signs: Last Vital Signs Pulse 76 01/28/25 09:49 BP 108/82 01/28/25 09:49 BMI result Body Mass Index 37.6 Const General: cooperative, healthy appearing, comfortable and no acute distress Orientation/consciousness: patient oriented x3 Neck Neck: Yes normal visual inspection and Yes no JVD Resp Effort & Inspection: normal respiratory effort Auscultation: clear to auscultation bilaterally, no rales, no rhonchi and no wheezes Cardio Rate: regular rate Rhythm: regular rhythm Heart sounds: S1 normal heart sound present, S2 normal heart sound present, no gallops, no murmurs and no rubs Neuro General: patient oriented x3 Extrem General: Yes normal to inspection, No no pedal edema and No calf tenderness Psych Appearance: grossly normal Mental Status: mental status grossly normal Speech and movement: Normal speech and movement present Assessment & Plan Assessment & Plan (1) Paroxysmal atrial fibrillation: Code(s): I48.0 - Paroxysmal atrial fibrillation Category: Medical Plan: New finding of paroxysmal atrial fibrillation that is being treated with rhythm control. He is on metoprolol 50 mg daily. Chads Vasc score of 0, anticoagulation is not indicated. Holter monitor done 12/17/2024 showed sinus rhythm with average heart rate 94, rare SVE, no atrial fibrillation. Echocardiogram 12/17/2024 was normal study. Diagnosis of atrial fibrillation, expected treatment, stroke risk all reviewed with him in detail. Instructed to notify this office if he has recurrent issues with heart palpitations. Will consider ablation going forward. This was briefly reviewed with him. Will check a home sleep study to evaluate for obstructive sleep apnea. Cardiology follow-up 3 months, sooner if needed. (2) Vapes nicotine containing substance: Code(s): Z72.0 - Tobacco use Category: Social Hx Plan: Vapes nicotine, no recent change. (3) Hypersomnia: Code(s): G47.10 - Hypersomnia, unspecified Plan: Home sleep study ordered (4) Hospital discharge follow-up: Code(s): Z09 - Encounter for follow-up examination after completed treatment for conditions other than malignant neoplasm Category: Medical Plan: [facility] discharge summary, cardiology consult reviewed Plan Time spent on chart review, documentation, interviewed assessment Orders: Orders RT home sleep study Today G47.10 - Hypersomnia, unspecified, I48.0 - Paroxysmal atrial fibrillation Coding Level of Care Code Est Pt Level 4 (33590) Complex EM visit Add On G2211 Diagnoses Paroxysmal atrial fibrillation I48.0 Vapes nicotine containing substance Z72.0 Hypersomnia G47.10 Hospital discharge follow-up Z09 Time Spent (min) 28
--- OUTSIDE RECORDS SUMMARY | 2025-01-28 10:54 | XMS_ITS | Clinical Summary ---
[facility] Organization [facility] Address [address] [place] [address] Care Team Providers Care Mold Laminator Name Role Phone Aj Spence NP Primary [...] - 2023-2 5 season) 2024 Influenza Vaccine (Season Ended) 2025 HIB Vaccines Aged Out No longer eligi [...] age to complete this topic Care Teams Mold Laminator Relationship Specialty Start Date End Date Aj Spence NP [address] [facility] [place], [place] PCP - General 09/25/23
--- OUTSIDE RECORDS SUMMARY | 2025-01-28 10:54 | XMS_ITS | Clinical Summary ---
Author Organization [facility] Address [address] [place], [place] [id number] Care Team Providers Care Literature Teacher Name Role Phone Aj Spence Primary Care Provider [phone] Allergies No known active allergies Medications Medication [...] of Treatment Not on file Care Teams Literature Teacher Relationship Specialty Start Date End Date Aj Spence [address] [facility] [place] [address] PCP - General Family Medicine 09/25/23
== END 2025-01-28 10:18 | disposition home or self-care (01) ==
LOC: HO.HCS 09:46
PROVIDERS: PCP Nurse Practitioner Family; Visit Provider Nurse Practitioner Family
DX: I48.0 Paroxysmal atrial fibrillation (principal); Z72.0 Tobacco use; G47.10 Hypersomnia, unspecified; Z09 Encounter for follow-up examination after completed treatment for conditions other than malignant neoplasm
CPT/HCPCS: 99214; G2211

== ENCOUNTER → 2025-01-28 10:43 | Outpatient (BNV) | payer OTHER, SELFPAY | PROVIDERS: PCP Nurse Practitioner Family; Referring Provider Nurse Practitioner Family; Visit Provider Radiology Diagnostic Radiology | DX: Z98.890 Other specified postprocedural states (principal) | CPT/HCPCS: 72100 ==

== ENCOUNTER 2025-02-14 11:36 | Outpatient (AMB) | payer OTHER, SELFPAY ==
--- OUTSIDE RECORDS SUMMARY | 2025-02-14 11:50 | XMS_ITS | Clinical Summary ---
[facility] Organization [facility] Address [address] [place] [address] Care Team Providers Care Buckle Assembler Name Role Phone Aj Spence NP Primary [...] age to complete this topic Care Teams Buckle Assembler Relationship Specialty Start Date End Date Aj Spence NP [address] [facility] [place], [place] PCP - General 09/25/23
--- OUTSIDE RECORDS SUMMARY | 2025-02-14 11:50 | XMS_ITS | Clinical Summary ---
Author Organization [facility] Address [address] [place], [place] [id number] Care Team Providers Care Data Conversion Analyst Name Role Phone Aj Spence Primary Care Provider [phone] Allergies No known active allergies Medications Medication [...] of Treatment Not on file Care Teams Data Conversion Analyst Relationship Specialty Start Date End Date Aj Spence [address] [facility] [place] [address] PCP - General Family Medicine 09/25/23
--- NOTE | 2025-02-14 12:09 | A.SPINEOV_ITS ---
Intake Visit Reasons: recurring back and leg pain after surgery Intake Note: Mr. Bo is here today c/o recurring back and leg pain after surgery. [employer] Dean Required: No Allergies No Known Allergies Allergy (Verified 02/14/25 12:18) Assessment & Plan Assessment & Plan (1) S/P lumbar microdiscectomy: Code(s): Z98.890 - Other specified postprocedural states Category: Medical Plan Mr Bo came back in today for follow-up. He is a gentleman who underwent a left L5-S1 transforaminal lumbar interbody fusion for recurrent herniated discs. He had excellent relief of his left leg pain and the back pain that brought him in, but what he has been dealing with is a persistent pain in his back with activity since the surgery as well as a intermittent cramping sensation that he gets in his toes on his left foot. The pain can be intense when he gets the cramping to where it feels like it can be an 8/10. He is having a hard time doing things and it has frustrating his quality of life. On my exam today, he is able to stand up and walk with no obvious deficit an antalgic pain. His strength in the left foot is full. Is reflex however is absent on that side. 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 We see this in patients who have had multiple disc herniations and multiple surgeries. His lumbar x-rays showed good placement of the hardware. The report suggests there is maybe some disc degeneration at L3-4 but I do not see it. I offered him the option of a lumbar MRI just to take a look to reassure him, but I told him that unless it showed something severely wrong, that I suspected were dealing with nerve injury and that is unlikely anything surgically we can do to fix that. He became upset and walked out telling me he would seek out a 2nd opinion and did not want the MRI. I am still happy to order it for him if he changes his mind as I suspect he is just having a hard time processing the fact that all of this happened to him and there is no easy answer here. Total amount of time spent in this visit was 20 minutes in discussion of symptoms, lumbar x-ray imaging results and subsequent plan of care Joe Simeon MD,PhD [facility] Coding Level of Care Code Est Pt Level 3 (55534) Diagnoses S/P lumbar microdiscectomy Z98.890
== END 2025-02-14 12:41 | disposition home or self-care (01) ==
LOC: HO.HNS 11:37
PROVIDERS: PCP Nurse Practitioner Family; Visit Provider Physician Assistant
DX: Z98.890 Other specified postprocedural states (principal)
CPT/HCPCS: 99213

== ENCOUNTER → 2025-02-14 11:36 | Outpatient (BNVA) | payer OTHER, SELFPAY | PROVIDERS: PCP Nurse Practitioner Family; Visit Provider Physician Assistant | DX: M54.9 Dorsalgia, unspecified (principal); Z98.890 Other specified postprocedural states | CPT/HCPCS: 99212 ==

== ENCOUNTER 2025-03-12 06:55 | Outpatient (AMB) | payer OTHER, SELFPAY ==
--- OUTSIDE RECORDS SUMMARY | 2025-03-12 06:58 | XMS_ITS | Clinical Summary ---
Author Organization [facility] Address [address] [place], [place] [id number] Care Team Providers Care Quantity Surveyor Name Role Phone Aj Spence Primary Care Provider Allergies No known active allergies Medications Medication [...] of Treatment Not on file Care Teams Quantity Surveyor Relationship Specialty Start Date End Date Aj Spence [address] [facility] [place] [address] PCP - General Family Medicine 09/25/23
--- NOTE | 2025-03-12 08:08 | MHC.PC.OV ---
Intake Visit Reasons: follow up weight loss Allergies No Known Allergies Allergy (Verified 02/14/25 12:18) Tobacco use date assessed: 01/08/25 Dental Screening Dental Screen Date: 01/08/25 HPI follow up weight loss HPI Details History of Present Illness The patient is a 29-year-old male presenting for a telehealth follow-up visit focused on GLP-1 agonist therapy for obesity management. He has experienced a noteworthy response with significant weight loss, exceeding 20 pounds, since initiating the 7.5 mg dosage of Zepbound. During treatment, the patient reports an absence of side effects. He denies a range of symptoms including chest pain, dyspnea, abdominal discomfort, rectal bleeding, constipation, and diarrhea. The current treatment appears well-tolerated, with a noticeable improvement in overall weight management. Review of Systems - Constitutional: Denies chest pain, shortness of breath, abdominal pain, blood in stool, constipation, diarrhea Plan 1. 5 mg to 10 mg to further benefit weight loss efforts. The patient will be advised to monitor for any potential side effects, although none have been reported thus far. In alignment with escalating therapy, I am recommending a schedule for laboratory evaluations to bolster our proactive management and ensure safety as the therapy progresses.: Discussion Notes During our telehealth session, I discussed the remarkable progress the patient has achieved with the initial 7.5 mg dosage of Zepbound. This positive reinforcement supports an increase to a 10 mg dosage to further facilitate weight loss. I addressed the lack of reported side effects, which reassures us of his ability to tolerate an increased dose. Additionally, I underscored the importance of upcoming laboratory testing to maintain vigilance while receiving GLP-1 therapy. I encouraged open communication regarding any new symptoms and emphasized ongoing commitment to monitoring his treatment. Patient Instructions - Continue taking Zepbound at 10 mg as prescribed. - Schedule lab tests soon to ensure ongoing monitoring. - Report any new symptoms promptly. - Keep me updated on your progress and weight changes. PFSH Medical History ADHD Surgical History Hx of appendectomy Hx of microdiscectomy Social History Household Members: Significant Other and Children Housing: Apartment Do you presently have visiting nurse or other home services: No Patient Tobacco Use Status: Former Tobacco user Tobacco use type: Cigarette e-Cigarette/Vaping Use: Currently Using service: No Current occupational status: unemployed Cognitive needs: No Hearing needs: No Vision needs: No Questionnaire Thrive Questionnaire Date Thrive assessed: 01/08/25 I am a: Patient What is your living situation today?: I have a steady place to live Within the past 12 months, did the food you bought not last and you didn't have the money to get more?: I choose not to answer this question Within the past 12 months, did you worry whether your food would run out before you got money to buy more?: I choose not to answer this question Do you have trouble paying for medicines?: I choose not to answer this question Do you have trouble getting transportation to medical appointments?: I choose not to answer this question Do you have trouble paying your heating and electricity bill?: I choose not to answer this question Do you have trouble taking care of your child, family member or friend?: I choose not to answer this question Do you have trouble with day-to-day activities such as bathing, preparing meals, shopping, managing finances, etc.?: I choose not to answer this question Are you currently unemployed and looking for a job?: I choose not to answer this question Are you interested in more education?: I choose not to answer this question Please select the resources that you would like help with: None Currently or been in a relationship where the following occur: I choose not to answer THRIVE Score: 0 BRET-7 AMB Questionnaire BRET-7 Date BRET - 7 assessed: 01/08/25 Source: Developed by Drs. Marcos Lynn, Vera Rao, Bill Sandoval and colleagues, with an educational svetlana from [employer]. Physical exam (Primary Care) Tobacco/Smoking Status: Tobacco use Status Tobacco use date assessed 01/08/25 03/12/25 08:10 Patient Tobacco Use Status Former Tobacco user 03/12/25 08:10 Tobacco use type Cigarette 03/12/25 08:10 e-Cigarette/Vaping Use Currently Using 03/12/25 08:10 Thrive Assessment: Date of Thrive Assessment Date Thrive assessed 01/08/25 03/12/25 08:10 Currently or been in a relationship where the following occur: I choose not to answer Telehealth Telehealth Telehealth Platform: [facility] Location of provider rendering services: practice address Location of patient: address on file Patient Identification confirmed using: Name, : Yes Telehealth method: video Patient verbally consented to treatment: Yes Patient verbally consented to billing insurance company: Yes Patient informed of any privacy concerns related to visit: Yes Minutes spent on Phone/Video with Pt.: 10 Coding Level of Care Code Tele Est Pt Level 3 (77175) Diagnoses Obesity E66.9 Assessment & Plan Assessment & Plan (1) Obesity: Code(s): E66.9 - Obesity, unspecified Category: Medical Plan . Medications: Changed From tirzepatide (weight loss) for 4 weeks 7.5 mg (0.5 mL) subcut QWEEK 2 mL 0RF To tirzepatide (weight loss) for 4 weeks 10 mg (0.5 mL) subcut QWEEK 2 mL 0RF
== END 2025-03-12 08:22 | disposition home or self-care (01) ==
LOC: HO.HMCC 06:56
PROVIDERS: PCP Nurse Practitioner Family; Visit Provider Nurse Practitioner Family
DX: E66.9 Obesity, unspecified (principal)

== ENCOUNTER → 2025-03-12 06:55 | Outpatient (BNVA) | payer OTHER, SELFPAY | PROVIDERS: PCP Nurse Practitioner Family; Visit Provider Nurse Practitioner Family | DX: Z13.89 Encounter for screening for other disorder (principal) ==

== ENCOUNTER → 2025-03-31 13:53 | Outpatient (REF) | payer OTHER, SELFPAY ==
--- OUTSIDE RECORDS SUMMARY | 2025-03-31 14:24 | XMS_ITS ---
Author Name [facility] Organization Unknown Encounters Encounter Type Encounter Reason Primary Diagnosis Location Date Emergency Sciatica, unspecifie d side Sciatica, unspecified side [facility] 09/25/2023 Care Team Organization Name Specialty Phone Email Start Date End Da ashleigh [facility] 10/22/2023 [facility] 09/27/2023 [facility]
--- OUTSIDE RECORDS SUMMARY | 2025-03-31 14:24 | XMS_ITS | Clinical Summary ---
Author Organization [facility] Address [address] [place], [place] [id number] Care Team Providers Care Nursing Coordinator Name Role Phone Aj Spence Primary Care Provider [phone] Allergies No known active allergies Medications Medication [...] 82 09/25/2023 10:46 AM EST Temperature 36.7 C (98.1 F) 09/25/2023 10:46 AM EST Respiratory Rate 18 09/25/2023 10:46 AM EST Oxygen Saturation 99% 09/25/2023 9:05 AM EST Inhaled Oxygen Concentration - - Weight 104.3 kg (230 lb) 09/25/2023 9:05 AM EST Height 170.2 cm (5' 7 ) 09/25/2023 9:05 AM EST Body Mass Index 36.02 09/25/2023 9:05 AM EST Plan of Treatment Not on file Care Teams Nursing Coordinator Relationship Specialty Start Date End Date Aj Spence [address] [facility] [place] [address] PCP - General Family Medicine 09/25/23
--- OUTSIDE RECORDS SUMMARY | 2025-03-31 14:24 | XMS_ITS | Clinical Summary ---
Author Organization [facility] Address [address] [place] [address] Care Team Providers Care Cathode Builder Name Role Phone Aj Spence NP Primary [...] age to complete this topic Care Teams Cathode Builder Relationship Specialty Start Date End Date Aj Spence NP [address] [facility] [place], [place] PCP - General 09/25/23
== END ==
LOC: HO.SL 13:53
PROVIDERS: PCP Nurse Practitioner Family; Visit Provider Nurse Practitioner Family
DX: G47.10 Hypersomnia, unspecified (principal); I48.0 Paroxysmal atrial fibrillation; R06.83 Snoring
CPT/HCPCS: 95806

== ENCOUNTER → 2025-03-31 14:06 | Outpatient (BNV) | payer OTHER, SELFPAY | PROVIDERS: PCP Nurse Practitioner Family; Visit Provider Internal Medicine | DX: R06.83 Snoring (principal) | CPT/HCPCS: 95806 ==